=== PATIENT | male | born 1975 | race Caucasian/White ===

== ENCOUNTER 2016-07-08 18:29 | Observation (INO) | payer SELFPAY ==
[~2016-07-08] VITALS: Ht 167.6 cm; Wt 111.9 kg
[2016-07-08] MEDS ORDERED: SODIUM CHLORIDE 0.9% 1000ML 1,000 ML IV STA (19:01)
[2016-07-08] MEDS ORDERED: LABETALOL HCL IV 5 MG/ML 20ML IV STA (19:01)
--- NOTE | 2016-07-08 19:15 | EMERGENCY ROOM VISIT NOTE ---
History Report prepared by Christophe: Darcy Oneal Under the Supervision of: Dr. Griffin Prince M.D. First contact with patient: 18:52 Chief Complaint: SHORTNESS OF BREATH Stated Complaint: SOB,HIGH BP Nursing Triage Summary: pt reports sob started last wednesday and had cxr earlier today works from home . being treated for sinus infection now. wednesday had pain in chest and pain in jaw found out had bad tooth. pt reports elevated bp lately. has been under alot of stress. gets winded when walking and with exertion. pt has hx of aortic stenosis and had surgery when he was 8 years old History of Present Illness The patient is a 40 year old male who presents to the Emergency Room with complaints of persistent shortness of breath that began 4 days ago. He feels worse when he lays flat. He does not feel worse with exertion.The patient states that he is suspicious that his breathing difficulties are due to anxiety. He also complains of some fluttering in his chest and a cough. The patient was initially seen at [facility] 3 days ago and was put on antibiotics for a sinus infection. He has also been taking Benadryl. He had jaw pain at that time in addition to his shortness of breath and was diagnosed with a dental abscess. He saw a dentist yesterday to have the abscess drained and currently has no jaw or dental pain. Today, the patient had a chest x-ray ordered by the doctor he saw at Urgent Care which revealed an enlarged heart. He asked to have his blood pressure taken at that time which was 188/117. His systolic blood pressure is typically 140. He is not treated for hypertension. He notes that he decided to come to the ED today after he was looking up his symptoms and treatments online and became slightly anxious. The patient has a history of aortic stenosis. He had surgery to open his aortic valve when he was 8 years old but did not have a valve replacement and has not had any surgery since then. Denies chest pain, urinary symptoms, or other complaints. Source of History: patient Onset: 4 days ago Position: other (global) Timing: other (persistent) Modifying Factors (Worsening): other (laying flat ) Associated Symptoms: + cough, No chest pain, No urinary symptoms Note: Other symptoms: fluttering in chest Review of Systems See HPI for pertinent positives & negatives. A total of 10 systems reviewed and were otherwise negative. Past Medical & Surgical Medical Problems: (1) Aortic stenosis Family History No pertinent family history stated. Social History Smoking Status: Never Smoker Marital Status: Occupation Status: employed Current/Historical Medications Scheduled Amoxicillin & Pot Clavulanate (Augmentin 875-125 mg), 1 TAB PO BID Diphenhydramine Hcl (Benadryl Allergy), 25 MG PO DIRECTED Scheduled PRN Amoxicillin (Amoxil), 4 CAP PO DIRECTED PRN for DENTAL PROCEDURE Ibuprofen (Advil), 600 MG PO DIRECTED PRN for Headache Allergies Coded Allergies: No Known Allergies (Verified , 07/08/16) Physical Exam Vital Signs Date Time Temp Pulse Resp B/P Pulse Ox O2 Delivery O2 Flow Rate FiO2 07/08/16 20:09 67 20 162/133 98 Room Air 07/08/16 19:34 71 20 179/130 99 Room Air 07/08/16 19:20 99 Room Air 07/08/16 19:08 76 07/08/16 18:35 36.6 75 20 223/135 99 Room Air Physical Exam GENERAL: Patient is in no acute distress. HEENT: No acute trauma, normocephalic atraumatic, mucous membranes moist, no nasal congestion, no scleral icterus. NECK: No stridor, no adenopathy, no meningismus, trachea is midline. LUNGS: Clear to auscultation bilaterally, no wheeze, no rhonchi, breath sounds equal. HEART: 4/6 systolic murmur with a regular rate and rhythm. ABDOMEN: Soft, nontender, bowel sounds positive, no hernias, no peritonitis. EXTREMITIES: No cyanosis or edema, full range of motion of all the joints without pain or difficulty, no signs for acute trauma. NEUROLOGIC: Oriented x 3, no acute motor or sensory deficits, no focal weakness. SKIN: No rash, no jaundice, no diaphoresis. Medical Decision & Procedures ER Provider Diagnostic Interpretation: Chest x-ray from earlier today showed cardiomegaly, no CHF, no pneumonia. Laboratory Results 07/08/16 18:30 Red Blood Count 5.39, Mean Corpuscular Volume 86.3, Mean Corpuscular Hemoglobin 30.6, Mean Corpuscular Hemoglobin Concent 35.5, Mean Platelet Volume 10.0, Neutrophils (%) (Auto) 63.7, Lymphocytes (%) (Auto) 27.3, Monocytes (%) (Auto) 7.1, Eosinophils (%) (Auto) 1.5, Basophils (%) (Auto) 0.2, Neutrophils # (Auto) 5.20, Lymphocytes # (Auto) 2.23, Monocytes # (Auto) 0.58, Eosinophils # (Auto) 0.12, Basophils # (Auto) 0.02 07/08/16 18:30 Test 07/08/16 18:30 White Blood Count 8.17 K/uL (4.8-10.8) Red Blood Count 5.39 M/uL (4.7-6.1) Hemoglobin 16.5 g/dL (14.0-18.0) Hematocrit 46.5 % (42-52) Mean Corpuscular Volume 86.3 fL (80-100) Mean Corpuscular Hemoglobin 30.6 pg (25-34) Mean Corpuscular Hemoglobin Concent 35.5 g/dl (32-36) Platelet Count 291 K/uL (130-400) Mean Platelet Volume 10.0 fL (7.4-10.4) Neutrophils (%) (Auto) 63.7 % Lymphocytes (%) (Auto) 27.3 % Monocytes (%) (Auto) 7.1 % Eosinophils (%) (Auto) 1.5 % Basophils (%) (Auto) 0.2 % Neutrophils # (Auto) 5.20 K/uL (1.4-6.5) Lymphocytes # (Auto) 2.23 K/uL (1.2-3.4) Monocytes # (Auto) 0.58 K/uL (0.11-0.59) Eosinophils # (Auto) 0.12 K/uL (0-0.5) Basophils # (Auto) 0.02 K/uL (0-0.2) RDW Standard Deviation 41.2 fL (36.4-46.3) RDW Coefficient of Variation 13.0 % (11.5-14.5) Immature Granulocyte % (Auto) 0.2 % Immature Granulocyte # (Auto) 0.02 K/uL (0.00-0.02) Prothrombin Time 11.1 SECONDS (9.0-12.0) Prothromb Time International Ratio 1.0 (0.9-1.1) Activated Partial Thromboplast Time 26.4 SECONDS (21.0-31.0) Partial Thromboplastin Ratio 1.0 Anion Gap 9.0 mmol/L (3-11) Est Creatinine Clear Calc Drug Dose 94.3 ml/min Estimated GFR () 85.9 Estimated GFR (Non- 74.1 BUN/Creatinine Ratio 16.0 (10-20) Calcium Level 8.7 mg/dl (8.5-10.1) Magnesium Level 2.2 mg/dl (1.8-2.4) Total Bilirubin 0.5 mg/dl (0.2-1) Aspartate Amino Transf (AST/SGOT) 15 U/L (15-37) Alanine Aminotransferase (ALT/SGPT) 29 U/L (12-78) Alkaline Phosphatase 88 U/L (45-117) Troponin I < 0.015 ng/ml (0-0.045) Total Protein 8.3 gm/dl (6.4-8.2) Albumin 4.3 gm/dl (3.4-5.0) Globulin 4.0 gm/dl (2.5-4.0) Albumin/Globulin Ratio 1.1 (0.9-2) Thyroid Stimulating Hormone (TSH) 2.860 uIu/ml (0.300-4.500) Laboratory results reviewed by me. Medications Administered Medications (Trade) Dose Ordered Sig/Soto Route Start Time Stop Time Status Last Admin Dose Admin Sodium Chloride (Nss 1000ml) 1,000 ml @ 125 mls/hr Q8H STAT IV 07/08/16 19:01 07/09/16 03:00 07/08/16 19:33 125 MLS/HR Labetalol HCl (Normodyne IV) 20 mg NOW STAT IV 07/08/16 19:01 07/08/16 19:05 DC 07/08/16 19:31 20 MG Nitroglycerin (Nitroglycerin 2% Oint) 1 inch NOW STAT EXT 07/08/16 19:48 07/08/16 19:50 DC 07/08/16 19:48 1 INCH ECG Indication: SOB/dyspnea Rate (beats per minute): 78 Rhythm: normal sinus Findings: no acute ischemic change, no ectopy ED Course 1852: The patient was evaluated in room B8. A complete history and physical exam was performed. 1: Ordered Labetalol HCL 20 mg IV, NSS 1000 ml @ 125 mls/hr IV. 1950: Upon reexamination the patient is resting comfortably. I discussed results and treatment plan with the patient. He verbalizes agreement and understanding. The patient will be evaluated for further management. 2011: I discussed the case with Dr. Jose Ramon EPPERSON Hospitalist. The patient will be evaluated for further management. Medical Decision Differential includes but is not limited to hypertensive emergency/urgency, renal failure, electrolyte imbalance, dysrhythmia, anemia, TN, cardiac ischemia , aortic stenosis. There is no leukocytosis or concerning anemia. No significant electrolyte abnormality, kidney failure or hepatitis. EKG shows a normal sinus rhythm, no acute ischemia. Cardiac enzyme testing 1 is not consistent with acute cardiac injury. Chest x-ray done earlier today shows cardiomegaly, no CHF or pneumonia , no pneumothorax. The patient appears to be in a euthyroid state. The patient received labetalol IV, he then was given nitro paste. His blood pressure has come down to a more reasonable value. He is resting comfortably. The patient presents with increasing dyspnea, he is quite hypertensive, he has a loud cardiac murmur on exam and a history of aortic stenosis. Certainly, the aortic stenosis could be responsible for his dyspnea. Given the difficult to control blood pressure, given his presentation, admission/observation was felt warranted. I spoke to the patient and to case management. The on-call hospitalist was consulted. Consults Time Called: 1951 Consulting Physician: Dr. Jose Ramon EPPERSON Hospitalist Returned Call: 2011 I discussed the case with him. The patient will be evaluated for further management. Impression Primary Impression: Shortness of breath Additional Impressions: Hypertensive urgency Aortic stenosis Scribe Attestation The scribe's documentation has been prepared under my direction and personally reviewed by me in its entirety. I confirm that the note above accurately reflects all work, treatment, procedures, and medical decision making performed by me. Departure Information Dispostion Being Evaluated By Hospitalist Referrals No Doctor, Assigned (PCP) Patient Instructions My [facility] Problem Qualifiers
[2016-07-08 19:16] LABS: BASO % 0.2 %; BASO ABS # 0.02 K/uL (0-0.2); COMPLETE YES; EOS % 1.5 %; HEMATOCRIT 46.5 % (42-52); IG% 0.2 %; LYMPH % 27.3 %; LYMPH ABS # 2.23 K/uL (1.2-3.4); MEAN CELL VOLUME 86.3 fL (80-100); MEAN CORPUSCULAR HEMOGLOBIN 30.6 pg (25-34); MEAN CORPUSCULAR HGB CONC 35.5 g/dl (32-36); MONO % 7.1 %; NEUT % 63.7 %; PLATELET COUNT 291 K/uL (130-400); RED BLOOD COUNT 5.39 M/uL (4.7-6.1); WHITE BLOOD COUNT 8.17 K/uL (4.8-10.8)
[2016-07-08] MEDS ORDERED: IBUP-1050 PO (19:19)
[2016-07-08] MEDS ORDERED: DIPH25CA65 PO (19:19)
[2016-07-08] MEDS ORDERED: AMOX500C3 PO (19:19)
[2016-07-08] MEDS ORDERED: AMOX875T PO (19:19)
[2016-07-08 19:27] LABS: ALT/SGPT 29 U/L (12-78); AST/SGOT 15 U/L (15-37); BLOOD UREA NITROGEN 19 mg/dl (7-18); CALCIUM 8.7 mg/dl (8.5-10.1); CARBON DIOXIDE 26 mmol/L (21-32); CHLORIDE 106 mmol/L (98-107); GLUCOSE 92 mg/dl (70-99); MAGNESIUM 2.2 mg/dl (1.8-2.4); POTASSIUM 3.7 mmol/L (3.5-5.1); SODIUM 141 mmol/L (136-145)
[2016-07-08 19:38] LABS: ALB/GLOB RATIO 1.1 (0.9-2); ALKALINE PHOSPHATASE 88 U/L (45-117)
[2016-07-08 19:46] LABS: PROTHROMBIN TIME (PATIENT) 11.1 SECONDS (9.0-12.0)
[2016-07-08] MEDS ORDERED: NITROGLYCERIN OINT 2% 1GM PACKET EXT STA (19:48)
[2016-07-08] MEDS ORDERED: IV FLUIDS COMPLETED PRN (21:15)
[2016-07-08] MEDS ORDERED: METOPROLOL TARTRATE 25 MG TAB PO ONE (21:55)
[2016-07-08] MEDS ORDERED: LISINOPRIL 2.5 MG TAB PO ONE (21:58)
[2016-07-08] MEDS ORDERED: METOPROLOL TARTRATE 1 MG/ML VIAL IV PRN (22:00)
[2016-07-08] MEDS ORDERED: HydrALAZINE HCL 20 MG/ML VIAL IV. PRN (22:00)
[2016-07-08] MEDS ORDERED: METOPROLOL TARTRATE 1 MG/ML VIAL IV STA (22:07)
[2016-07-08 22:12] VITALS: BP 201/133; PULSE 74; TEMP 37; O2SAT 97; Ht 167.6 cm; Wt 111.9 kg
[2016-07-08] MEDS ORDERED: AMOXICILLIN/CLAVULANATE TAB 875 MG TAB PO ONE ×2 (22:39→23:00)
--- NOTE | 2016-07-08 22:44 | History and Physical ---
History & Physical Date & Time of Service: Jul 08, 2016 at 22:10 . Chief Complaint: shortness of breath . Primary Care Physician: No Doctor, Assigned . History of Present Illness Source: patient, clinic records, hospital records 40 YO male who does not have a PCP. History of aortic stenosis. S/P aortic valvulotomy at the age of 8 at [facility]. Last seen by a policy manager in 2002 when he was seen by Dr. Rai in the [facility]. Echo at that time showed normal left ventricular function, mild aortic stenosis. Stress echo negative for stress-induced ischemia. History of episodic hypertension, not treated with medications. Developed sinus congestion and drainage several weeks ago. Prescribed amoxicillin / clavulanic acid. Other medications included [id number] sinus medication with decongestant as well as ibuprofen. Later developed abscessed tooth. Was seen by dentist or oral surgeon yesterday. Usually has good exercise tolerance without significant limitations. Over the past week he has noted dyspnea, especially with exertion. Dyspnea also worse in supine position. Experiencing midsternal chest tightness - sometimes at rest, sometimes with exertion. Chest tightness nonradiating. No palpitations. No edema. No fever. Had a mild cough associated with his sinus infection, now resolved. BP upon arrival to ED was 223/135. Received IV labetalol and NTG ointment with improvement. . Past Medical/Surgical History Chronic Medical Problems: (1) Aortic stenosis Status: Chronic Surgical Problems: (1) Status post aortic valvotomy Permanent Comment: [facility] [place] for [place] stenosis Status: Chronic (2) Status post biopsy left femur Permanent Comment: benign path per patient Status: Chronic (3) Status post biopsy left femur Permanent Comment: benign path per patient Status: Chronic . Family History UNCLE Hypertension Social History Smoking Status: Never Smoker Alcohol Use: occasionally Marital Status: Occupational Status: employed Multi-Drug Resistant Organisms History of MDRO: No Allergies Coded Allergies: No Known Allergies (Verified , 07/08/16) Home Medications Scheduled Amoxicillin & Pot Clavulanate (Augmentin 875-125 mg), 1 TAB PO BID Diphenhydramine Hcl (Benadryl Allergy), 25 MG PO DIRECTED Scheduled PRN Amoxicillin (Amoxil), 4 CAP PO DIRECTED PRN for DENTAL PROCEDURE Ibuprofen (Advil), 600 MG PO DIRECTED PRN for Headache Review of Systems Constitutional: No chills, No fever, No sweats, No weight loss Eyes: + worsening of vision (occasional blurred vision), No diplopia ENT: + dental problems (tooth abscess left lower molar), + nasal symptoms, No hearing loss Respiratory: + cough (few weeks ago, resolved) Cardiovascular: + problem reported (as noted above in HPI) Abdomen: No GI bleeding, No diarrhea, No nausea, No pain, No vomiting Musculoskeletal: No joint pain Genitourinary - Male: No dysuria, No hematuria Endocrine: No excessive thirst, No excessive urination Hematologic / Lymphatic: + swollen lymph nodes (left neck), No abnormal bleeding/bruising Integumentary: No itch, No new/changing skin lesions, No rash Physical Exam Vital Signs Date Time Temp Pulse Resp B/P Pulse Ox O2 Delivery O2 Flow Rate FiO2 07/08/16 22:38 109 163/117 07/08/16 22:12 37.0 74 18 201/133 97 Room Air 07/08/16 21:21 72 18 195/137 99 Room Air 07/08/16 20:27 76 20 186/136 100 Room Air 07/08/16 20:09 67 20 162/133 98 Room Air 07/08/16 19:34 71 20 179/130 99 Room Air 07/08/16 19:20 99 Room Air 07/08/16 19:08 76 07/08/16 18:35 36.6 75 20 223/135 99 Room Air General Appearance: WD/WN, no apparent distress Head: normocephalic, atraumatic Eyes: normal inspection, PERRL, EOMI, sclerae normal ENT: normal ENT inspection, hearing grossly normal, pharynx normal Neck: supple, no adenopathy, thyroid normal, no JVD, trachea midline Respiratory/Chest: lungs clear, no respiratory distress Cardiovascular: regular rate, rhythm, no edema, no JVD, normal peripheral pulses, + systolic murmur (III/ systolic murmur at base), + gallop/S4 Abdomen/GI: normal bowel sounds, non tender, soft, no organomegaly, no pulsatile mass, + pertinent finding (no bruit) Extremities/Musculoskelatal: normal inspection, no calf tenderness, normal capillary refill, no pedal edema Neurologic/Psych: animal caretaker II-XII nml as tested (PERRL, EOMI, no facial palsy, no dysarthria), no motor/sensory deficits, alert, normal mood/affect, oriented x 3 Skin: normal color, warm/dry, no rash Lymphatic: no adenopathy Diagnostics Laboratory Results Results Past 24 Hours Test 07/08/16 18:30 Range/Units White Blood Count 8.17 4.8-10.8 K/uL Red Blood Count 5.39 4.7-6.1 M/uL Hemoglobin 16.5 14.0-18.0 g/dL Hematocrit 46.5 42-52 % Mean Corpuscular Volume 86.3 80-100 fL Mean Corpuscular Hemoglobin 30.6 25-34 pg Mean Corpuscular Hemoglobin Concent 35.5 32-36 g/dl Platelet Count 291 130-400 K/uL Mean Platelet Volume 10.0 7.4-10.4 fL Neutrophils (%) (Auto) 63.7 % Lymphocytes (%) (Auto) 27.3 % Monocytes (%) (Auto) 7.1 % Eosinophils (%) (Auto) 1.5 % Basophils (%) (Auto) 0.2 % Neutrophils # (Auto) 5.20 1.4-6.5 K/uL Lymphocytes # (Auto) 2.23 1.2-3.4 K/uL Monocytes # (Auto) 0.58 0.11-0.59 K/uL Eosinophils # (Auto) 0.12 0-0.5 K/uL Basophils # (Auto) 0.02 0-0.2 K/uL RDW Standard Deviation 41.2 36.4-46.3 fL RDW Coefficient of Variation 13.0 11.5-14.5 % Immature Granulocyte % (Auto) 0.2 % Immature Granulocyte # (Auto) 0.02 0.00-0.02 K/uL Prothrombin Time 11.1 9.0-12.0 SECONDS Prothromb Time International Ratio 1.0 0.9-1.1 Activated Partial Thromboplast Time 26.4 21.0-31.0 SECONDS Partial Thromboplastin Ratio 1.0 Sodium Level 141 136-145 mmol/L Potassium Level 3.7 3.5-5.1 mmol/L Chloride Level 106 98-107 mmol/L Carbon Dioxide Level 26 21-32 mmol/L Anion Gap 9.0 3-11 mmol/L Blood Urea Nitrogen 19 7-18 mg/dl Creatinine 1.20 0.60-1.40 mg/dl Est Creatinine Clear Calc Drug Dose 94.3 ml/min Estimated GFR () 85.9 Estimated GFR (Non- 74.1 BUN/Creatinine Ratio 16.0 10-20 Random Glucose 92 70-99 mg/dl Calcium Level 8.7 8.5-10.1 mg/dl Magnesium Level 2.2 1.8-2.4 mg/dl Total Bilirubin 0.5 0.2-1 mg/dl Aspartate Amino Transf (AST/SGOT) 15 15-37 U/L Alanine Aminotransferase (ALT/SGPT) 29 12-78 U/L Alkaline Phosphatase 88 45-117 U/L Troponin I < 0.015 0-0.045 ng/ml Total Protein 8.3 6.4-8.2 gm/dl Albumin 4.3 3.4-5.0 gm/dl Globulin 4.0 2.5-4.0 gm/dl Albumin/Globulin Ratio 1.1 0.9-2 Thyroid Stimulating Hormone (TSH) 2.860 0.300-4.500 uIu/ml Diagnostic Radiology Chest x-ray reviewed by undersigned and interpreted by Radiology: TWO VIEW CHEST FINDINGS: PA and lateral chest radiographs are compared to study dated 04/22/2009. The examination is degraded by large body habitus. The patient is status post midline sternotomy. The heart is enlarged and there is atherosclerotic calcification of the thoracic aorta. The pulmonary vasculature is noncongested. The lungs and pleural spaces are clear. There is no pneumothorax. The skeletal structures appear osteopenic. The bony thorax appears intact. Degenerative change and mild scoliosis are noted in the thoracic spine. IMPRESSION: Cardiomegaly with no active disease in the chest. Electronically signed by: Griffin Power M.D. 07/08/2016 3:53 PM . EKG EKG performed at 18:47 reviewed and demonstrated NSR at 80 / minute, LVH, poor R -wave progression, [address] depression lateral leads. . Impression Assessment and Plan HYPERTENSIVE URGENCY History of episodically elevated blood pressure, not treated medically. BP upon presentation to ED was 223/135. Recently taking decongestants and ibuprofen for sinus symptoms. Received IV labetalol and nitroglycerin ointment in ED. Start HCTZ 12.5 mg daily, metoprolol tartrate 25 mg BID, lisinopril 2.5 mg daily. IV metoprolol or IV hydralazine PRN. Check echo. Consider secondary causes of hypertension. Avoid NSAID's and decongestants. Follow and titrate Rx. DYSPNEA Not hypoxic. No infiltrates, CHF, or pleural effusions on chest film. SOB could be secondary to hypertensive urgency, ischemic heart disease, or worsening valvular heart disease. Check echo. Consult Cardiology. AORTIC STENOSIS History of aortic stenosis, s/p aortic vavlulotomy at age of 8. 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 Last echo performed in 2002 showed mild . Check f/u echo. VTE PROPHYLAXIS Low risk for VTE. SQ enoxaparin. Ambulate. RESUSCITATION STATUS Full code. DISPOSITION Observation status on Telemetry Unit. Expected discharge to home. Will need to establish with PCP and Cardiology for outpatient follow-up. . Advanced Directives Existing Living Will: No Existing Power of Parole Board Member: No VTE Prophylaxis VTE Risk Assessment Done? Y/N: Yes Risk Level: Low Given or contraindicated: Enoxaparin (Lovenox)SQ
[2016-07-08] MEDS: ACETAMINOPHEN 500 MG TAB PO PRN (23:37)
[2016-07-08 23:44] VITALS: BP 175/112; PULSE 56; TEMP 36.6; O2SAT 96
[2016-07-09] VITALS (7 sets, daily range): BP systolic 121–162; BP diastolic 85–111; PULSE 56–75; TEMP 36.7–36.8; O2SAT 97–100
[2016-07-09] MEDS ORDERED: AMOXICILLIN/CLAVULANATE TAB 875 MG TAB PO SCH ×2 (07:30)
[2016-07-09] MEDS ORDERED: HYDROCHLOROTHIAZIDE 25 MG TAB PO SCH (09:00)
[2016-07-09] MEDS ORDERED: ENOXAPARIN 40 MG/0.4 ML SYR SQ SCH (09:00)
[2016-07-09] MEDS ORDERED: METOPROLOL TARTRATE 25 MG TAB PO SCH (09:00)
[2016-07-09] MEDS ORDERED: LISINOPRIL 2.5 MG TAB PO SCH (09:00)
[2016-07-09] MEDS ORDERED: PERFLUTREN LIPID MICROSPHERE (DEFINITY) IV ONE (09:23)
--- NOTE | 2016-07-09 11:10 | ECHOCARDIOGRAM REPORT ---
*NOTICE TO RECEIVING [employer] This information is strictly Confidential and protected under [place] law. [place] law prohibits you from making any further disclosure of this information unless further disclosure is expressly permitted by the written consent of the person to whom it pertains or is authorized by law. A general authorization for the release of medical or other information is not sufficient for this purpose. Hospital accepts no responsibility if the information is made available to any other person, INCLUDING THE PATIENT. Interpretation Summary * Name: STEVEN ESPARZA Study Date: 07/09/2016 07:45 AM * Patient Location: .2\S\S241\S\1 HR: 76 * : 1975 (M/d/yyyy) Gender: Male Height: 65 in * Age: 40 yrs Ethnicity: [place] Weight: 247 lb * Ordering Physician: Amilcar Albright * Referring Physician: Self, Referred * Performed By: Katie Thao RDCS * * Reason For Study: HX CONGENITAL , S/P VALVULOTOMY, HTN * BSA: 2.2 m2 * History: VALVULAR HEART DISEASE, HX CONGENITAL , S/P VALVULOTOMY, HYPERTENSION * The study was technically limited. * -- Conclusions -- * There is mild concentric left ventricular hypertrophy. * There is also asymmetric hypertrophy of the mid and basal interventricular septum with maximum thickness of 2.2 cm. * The left ventricular wall motion is normal. * The LV Ejection Fraction = 55-60%. * The aortic valve is not well visualized. * Mild calcification of the aortic valve is present. * Mild to moderate valvular aortic stenosis based on Doppler evaluation. * Grade I diastolic dysfunction, (abnormal relaxation pattern). Procedure Details * A contrast injection of Definity was performed to improve assessment of LV function. * Contrast was injected into an intravenous site in the right arm. * One vial of Definity ultrasound contrast was diluted in normal saline to a total volume of 10 ml. A total of '2' ml of solution was administered during imaging. * Lot # [id number] of Definity utilized for procedure. * Expiration date AUG 04. * The attending nurse who injected the contrast agent was JELANI JAMES RN. * A complete two-dimensional transthoracic echocardiogram was performed (2D, M-mode, Doppler and color flow Doppler). Left Ventricle * The left ventricle is normal in size. * There is mild concentric left ventricular hypertrophy. * There is also asymetric hypertrophy of the mid and basal interventricular septum with maximum thickness of 2.2 cm. * Left ventricular systolic function is normal. * Ejection Fraction = 55-60%. * The left ventricular wall motion is normal. Right Ventricle * The right ventricle is normal size. * The right ventricular systolic function is normal as assessed by tricuspid annular plane systolic excursion (TAPSE) (normal >1.5 cm). Atria * The left atrial size is normal. * Right atrial size is normal. * There is no evidence of atrial septal defect, but resolution does not allow assessment for a patent foramen ovale. Mitral Valve * The mitral valve is normal. * There is no mitral valve stenosis. * Significant mitral regurgitation is absent. Tricuspid Valve * The tricuspid valve is normal. * There is no tricuspid stenosis. * Significant tricuspid regurgitation is absent. Aortic Valve * The aortic valve is not well visualized. * Mild calcification of the aortic valve is present. * Mild to moderate valvular aortic stenosis. * There is no significant aortic regurgitation. Pulmonic Valve * The pulmonary valve is not well seen, but the Doppler examination is normal without significant regurgitation or stenosis. Great Vessels * The aortic root and proximal ascending aorta are normal sized. Pericardium/Pleural * There is no pericardial effusion. Great Vessels * Normal inferior vena cava diameter and respiratory variation suggests normal central venous pressure. Left Ventricular Diastolic Function * Grade I diastolic dysfunction, (abnormal relaxation pattern). MMode 2D Measurements and Calculations IVSd 1.4 cm IVSs 1.8 cm LVIDd 4.6 cm LVIDs 3.2 cm LVPWd 1.4 cm LVPWs 2.0 cm IVS/LVPW 1.0 FS 30.3 % EDV(Teich) 95.4 ml ESV(Teich) 40.3 ml EF(Teich) 57.7 % EDV(cubed) 94.8 ml ESV(cubed) 32.1 ml EF(cubed) 66.1 % % IVS thick 30.7 % % LVPW thick 48.8 % LV mass(C)d 244.0 grams LV mass(C)dI 112.8 grams/m\S\2 LV mass(C)s 258.5 grams LV mass(C)sI 119.5 grams/m\S\2 SV(Teich) 55.0 ml SI(Teich) 25.4 ml/m\S\2 SV(cubed) 62.7 ml SI(cubed) 29.0 ml/m\S\2 LA dimension 3.7 cm LVOT diam 2.0 cm LVOT area 3.0 cm\S\2 LVAd ap4 28.4 cm\S\2 LVLd ap4 8.5 cm EDV(MOD-sp4) 72.9 ml EDV(sp4-el) 80.6 ml LVAs ap4 16.3 cm\S\2 LVLs ap4 6.7 cm ESV(MOD-sp4) 31.0 ml ESV(sp4-el) 33.9 ml EF(MOD-sp4) 57.5 % EF(sp4-el) 57.9 % LVAd ap2 31.3 cm\S\2 LVLd ap2 8.4 cm EDV(MOD-sp2) 95.9 ml EDV(sp2-el) 98.8 ml LVAs ap2 19.3 cm\S\2 LVLs ap2 6.6 cm ESV(MOD-sp2) 48.6 ml ESV(sp2-el) 48.3 ml EF(MOD-sp2) 49.4 % EF(sp2-el) 51.2 % LVLd %diff -0.53 % EDV(MOD-bp) 84.5 ml LVLs %diff -1.78 % ESV(MOD-bp) 39.0 ml EF(MOD-bp) 53.8 % SV(MOD-sp4) 41.9 ml SI(MOD-sp4) 19.4 ml/m\S\2 SV(MOD-sp2) 47.4 ml SI(MOD-sp2) 21.9 ml/m\S\2 SV(MOD-bp) 45.5 ml SI(MOD-bp) 21.0 ml/m\S\2 SV(sp4-el) 46.7 ml SI(sp4-el) 21.6 ml/m\S\2 SV(sp2-el) 50.6 ml SI(sp2-el) 23.4 ml/m\S\2 Doppler Measurements and Calculations MV E max jamie 90.7 cm/sec MV A max jamie 92.2 cm/sec MV E/A 0.98 MV dec time 0.25 sec Ao V2 max 283.8 cm/sec Ao max PG 33.0 mmHg Ao max PG (full) 30.3 mmHg Ao V2 mean 193.4 cm/sec Ao mean PG 17.8 mmHg Ao mean PG (full) 16.2 mmHg Ao V2 VTI 57.7 cm SHERRY(I,A) 1.0 cm\S\2 SHERRY(I,D) 1.0 cm\S\2 SHERRY(V,A) 0.89 cm\S\2 SHERRY(V,D) 0.89 cm\S\2 LV V1 max PG 2.8 mmHg LV V1 mean PG 1.6 mmHg LV V1 max 82.9 cm/sec LV V1 mean 59.1 cm/sec LV V1 VTI 19.3 cm SV(LVOT) 58.8 ml SI(LVOT) 27.2 ml/m\S\2
--- NOTE | 2016-07-09 12:09 | Cardiology Consultation ---
Cardiology Consultation Date of Consultation: Jul 09, 2016 History of Present Illness Percy Coronado is a 40-year-old male from [facility] seen in cardiology consultation per the request of Dr. Albright for the evaluation of shortness of breath, hypertension, and clinical history of congenital aortic valve stenosis. The patient apparently has a history of congenital aortic valve stenosis that had been diagnosed as a child. At age 8 he underwent midline sternotomy and surgical valvulotomy at [facility]. Hit followed with both pediatric and then it'll cardiology for many years however he had been lost to follow-up since 2002. 2002 he had an exercise stress echocardiogram at [facility] at which time mild aortic stenosis was noted. He notes having been well in the interim time. His recent history started about a week ago when he had symptoms of a head cold and progressive sinus congestion. He had been taking jyjw-fvn-lwleqxm sinus remedies including Sudafed and ultimately was taking phenylephrine nasal spray on an as-needed basis. On Wednesday he noted that he had a cough and worsened congestion. By 3 AM on Wednesday he had episodic jaw discomfort. The next day he was seen in urgent care Center and was diagnosed with a sinus infection and was placed on Augmentin. He remembers that his blood pressure is 160/80. Was recommended that he sees a dental professional due to concerns of a dental infection, also an outpatient chest x-ray had been recommended. He subsequent saw his dentist and was diagnosed with a dental infection and on Wednesday he had intervention in the dentist office for the tooth. He notes significant improvement in his jaw discomfort since the dental visit. Last evening on Wednesday07/08/16 he presented for a chest x-ray is recommended in follow-up by the urgent care Center and he arrived to radiology his blood pressure was noted to be significantly elevated. He went home and felt poorly and subsequently return to the emergency room due to concerns of shortness of breath, headache, and elevated blood pressure and on his initial blood pressure reading last evening at 1835 he was noted to have a blood pressure of 223/135 mmHg. He has not been on medication for hypertension. Although he does not go to the doctor's area often. Last evening he received 5 mg of IV metoprolol as well as a dose of IV labetalol rate topical nitroglycerin was placed. And he was admitted to the hospitalist service. Oral medications including metoprolol tartrate 25 mg twice a day, lisinopril 2.5 mg daily, and hydrochlorothiazide 12.5 mg daily added. His blood pressure is much improved today however still a little bit elevated with recent readings of 121/85, 148/108, and 147/97. The patient feels well, and is in no distress. Telemetry overnight revealed stable sinus rhythm. History PAST MEDICAL HISTORY: 1. Apparent congenital aortic valve stenosis 2. History of snoring which as been worse with his recent sinus infection no documented history of obstructive sleep apnea 3. At this point he is presumed underlying hypertension 4. Recent complicated sinusitis 5. Dental infection PAST SURGICAL HISTORY: 1. Midline sternotomy, aortic valvulotomy for congenital aortic stenosis performed age 8 [facility] 2. History of past bone biopsy, with favorable results FAMILY HISTORY: The patient does not know his father is unaware of his father's past medical history His mother is alive and is at the bedside with no heart history The patient does have a history of ischemic heart disease in his grandparents. SOCIAL HISTORY: The patient's a nonsmoker. He is and has 2 adult male children. 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 Review Of Systems See above for pertinent positives & negatives. A total of 10 systems reviewed and were otherwise negative. Allergies Coded Allergies: No Known Allergies (Verified , 07/08/16) Medications Reported Home Medications Medications Dose Route/Sig Max Daily Dose Days Date Category Amoxil (Amoxicillin) 500 Mg Cap 4 Cap PO DIRECTED PRN 07/08/16 Reported Augmentin 875-125 mg (Amoxicillin & Pot Clavulanate) 1 Tab Tab 1 Tab PO BID 07/08/16 Reported Benadryl Allergy (Diphenhydramine Hcl) 25 Mg Cap 25 Mg PO DIRECTED 07/08/16 Reported Advil (Ibuprofen) 200 Mg Tab 600 Mg PO DIRECTED PRN 07/08/16 Reported Physical Exam Vital Signs (Last 8hrs): Last 8 Hrs Date Time Temp Pulse Resp B/P Pulse Ox O2 Delivery O2 Flow Rate FiO2 07/09/16 10:00 75 18 147/97 07/09/16 08:00 Room Air 07/09/16 07:45 36.8 68 20 148/108 98 Room Air 157/111 07/09/16 05:26 36.8 61 20 121/85 97 Room Air General Appearance: Alert and Oriented x3. NAD. Head: Normocephalic Atraumatic. Eyes: PERRLA, EOMI, conjunctiva and sclera clear Neck: Supple. No carotid bruits noted. No JVD. No HJD. Respiratory: Breath sounds clear to auscultation bilaterally. No w/r/r. Cardiovascular: Reg rate and rhythm. 1/6 murmur Abdomen: Normal bowel sounds, soft nontender. no abdominal bruits. Extremities: No edema, no clubbing or cyanosis. distal pulses 2/4 bilaterally. Neuro: No focal deficits. Psychiatric: Normal affect. Data Last Resulted 07/08/16 18:30 Red Blood Count 5.39, Mean Corpuscular Volume 86.3, Mean Corpuscular Hemoglobin 30.6, Mean Corpuscular Hemoglobin Concent 35.5, Mean Platelet Volume 10.0, Neutrophils (%) (Auto) 63.7, Lymphocytes (%) (Auto) 27.3, Monocytes (%) (Auto) 7.1, Eosinophils (%) (Auto) 1.5, Basophils (%) (Auto) 0.2, Neutrophils # (Auto) 5.20, Lymphocytes # (Auto) 2.23, Monocytes # (Auto) 0.58, Eosinophils # (Auto) 0.12, Basophils # (Auto) 0.02 Last Resulted 07/08/16 18:30 Past 24 Hours Test 07/08/16 18:30 Range/Units Prothromb Time International Ratio 1.0 0.9-1.1 Prothrombin Time 11.1 9.0-12.0 SECONDS Troponin I < 0.015 0-0.045 ng/ml Imaging: EKG: EKG performed on presentation on 07/08/16 revealed normal sinus rhythm at 70 bpm normal EKG. Telemetry reviewed: SR. Summary of transthoracic echocardiogram performed today 07/09/16 and reviewed independently by the undersigned: * -- Conclusions -- * There is mild concentric left ventricular hypertrophy. * There is also asymetric hypertrophy of the mid and basal interventricular septum with maximum thickness of 2.2 cm. * The left ventricular wall motion is normal. * The LV Ejection Fraction = 55-60%. * The aortic valve is not well visualized. * Mild calcification of the aortic valve is present. * Mild to moderate valvular aortic stenosis based on Doppler evaluation. * Grade I diastolic dysfunction, (abnormal relaxation pattern). Assessment & Plan Impression: 40-year-old male 1. Shortness of breath and the setting of hypertensive urgency recent sinusitis , dental infection 2. History of congenital aortic valve disease, remote surgical valvulotomy HTN , stable echo cartographic findings of mild to moderate aortic valve stenosis 3. Left ventricular hypertrophy, with some degree of asymmetric septal hypertrophy, is difficult to determine if this is a remnant from his congenital aortic valve disease or if it is due to underlying hypertensive heart disease. Although the echocardiogram is somewhat technically limited, he certainly does not appear to have severe aortic stenosis that would cause symptoms and require surgical intervention. Recommendations: Continue Augmentin for sinusitis and recent dental infection Agree with new blood pressure medications including metoprolol tartrate 25 mg twice a day, lisinopril 2.5 g daily, Hydrocort Dyazide 25 mg daily. Patient has been counseled to avoid pseudoephedrine and phenylephrine nasal spray. If he needs an outpatient decongestant, guaifenesin would be advised. As long as the blood pressure remains reasonably controlled with systolic blood pressures in the 140-150 range after lunchtime, I think could be reasonable for him to be discharged with plans for outpatient cardiology follow-up in 2-4 weeks. Preoperative follow-up will be arranged with me at [facility].
--- NOTE | 2016-07-09 12:59 | Progress Note ---
Internal Med Progress Note Date of Service: Jul 09, 2016. Provider Documentation: SUBJECTIVE: Patient is doing better and denies any complaints No SOB, Chest pain, headaches, nausea, vomiting, localized weakness, fever, chills, cough BP down to 140s now OBJECTIVE: Vital Signs-as noted below Exam: General Appearance: WD/WN, no apparent distress Neck: supple, no adenopathy, thyroid normal, no JVD, trachea midline Respiratory/Chest: lungs clear, no respiratory distress Cardiovascular: regular rate, rhythm, no edema, no JVD, normal peripheral pulses, + systolic murmur Abdomen/GI: normal bowel sounds, non tender, soft, no organomegaly, no pulsatile mass, + pertinent finding (no bruit) Extremities/Musculoskelatal: normal inspection,no pedal edema Neurologic/Psych: Grossly no focal deficits, Anxious + Lab data as noted below. Diagnostic Radiology Chest x-ray reviewed by undersigned and interpreted by Radiology: TWO VIEW CHEST FINDINGS: PA and lateral chest radiographs are compared to study dated 04/22/2009. The examination is degraded by large body habitus. The patient is status post midline sternotomy. The heart is enlarged and there is atherosclerotic calcification of the thoracic aorta. The pulmonary vasculature is noncongested. The lungs and pleural spaces are clear. There is no pneumothorax. The skeletal structures appear osteopenic. The bony thorax appears intact. Degenerative change and mild scoliosis are noted in the thoracic spine. IMPRESSION: Cardiomegaly with no active disease in the chest. Electronically signed by: Griffin Power M.D. 07/08/2016 3:53 PM . EKG EKG performed at 18:47 reviewed and demonstrated NSR at 80 / minute, LVH, poor R -wave progression, [address] depression lateral leads. . ASSESSMENT & PLAN: Assessment and Plan HYPERTENSIVE URGENCY History of episodically elevated blood pressure, not treated medically. BP upon presentation to ED was 223/135. Recently taking decongestants and ibuprofen for sinus symptoms. -Received IV labetalol and nitroglycerin ointment in ED. -Started on HCTZ 12.5 mg daily, metoprolol tartrate 25 mg BID, lisinopril 2.5 mg daily which controlled BP well. -Work up- Echo- EF 55-60%, Asymmetric hypertrophy of mid/basal interventricular septum, Mild calcification of aortic valve, Mild-Moderate ; Gd II diastolic dysfunction , Mild LVH -Avoid NSAID's and decongestants. -Follow and titrate Rx. DYSPNEA- Resolved Not hypoxic. No infiltrates, CHF, or pleural effusions on chest film. -SOB could be secondary to hypertensive urgency, ischemic heart disease, or worsening valvular heart disease. -Echo as above AORTIC STENOSIS History of aortic stenosis, s/p aortic vavlulotomy at age of 8. 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 -Last echo performed in 2002 showed mild . Repeat Echo- as above- not severe and does not need surgical intervention per cardiology note VTE PROPHYLAXIS Low risk for VTE. SQ enoxaparin. Ambulate. RESUSCITATION STATUS Full code. DISPOSITION Observation status on Telemetry Unit. Expected discharge to home. Eager to be discharged home. Per patient, he will get appt with PCP set up within 1 week (prefers non [facility] PCP), Cardiology f/up in 2-4 weeks will be set up . Vital Signs: Date Time Temp Pulse Resp B/P Pulse Ox O2 Delivery O2 Flow Rate FiO2 07/09/16 10:00 75 18 147/97 07/09/16 08:00 Room Air 07/09/16 07:45 36.8 68 20 148/108 98 Room Air 157/111 07/09/16 05:26 36.8 61 20 121/85 97 Room Air 07/09/16 04:00 Room Air 07/09/16 03:26 36.8 56 22 153/101 99 Room Air 07/09/16 01:26 36.7 57 20 162/105 98 Room Air 07/09/16 00:01 Room Air 07/08/16 23:44 36.6 56 20 175/112 96 Room Air 07/08/16 22:38 109 163/117 07/08/16 22:12 37.0 74 18 201/133 97 Room Air 07/08/16 21:21 72 18 195/137 99 Room Air 07/08/16 20:27 76 20 186/136 100 Room Air 07/08/16 20:09 67 20 162/133 98 Room Air 07/08/16 19:34 71 20 179/130 99 Room Air 07/08/16 19:20 99 Room Air 07/08/16 19:08 76 07/08/16 18:35 36.6 75 20 223/135 99 Room Air Lab Results: Results Past 24 Hours Test 07/08/16 18:30 Range/Units White Blood Count 8.17 4.8-10.8 K/uL Red Blood Count 5.39 4.7-6.1 M/uL Hemoglobin 16.5 14.0-18.0 g/dL Hematocrit 46.5 42-52 % Mean Corpuscular Volume 86.3 80-100 fL Mean Corpuscular Hemoglobin 30.6 25-34 pg Mean Corpuscular Hemoglobin Concent 35.5 32-36 g/dl Platelet Count 291 130-400 K/uL Mean Platelet Volume 10.0 7.4-10.4 fL Neutrophils (%) (Auto) 63.7 % Lymphocytes (%) (Auto) 27.3 % Monocytes (%) (Auto) 7.1 % Eosinophils (%) (Auto) 1.5 % Basophils (%) (Auto) 0.2 % Neutrophils # (Auto) 5.20 1.4-6.5 K/uL Lymphocytes # (Auto) 2.23 1.2-3.4 K/uL Monocytes # (Auto) 0.58 0.11-0.59 K/uL Eosinophils # (Auto) 0.12 0-0.5 K/uL Basophils # (Auto) 0.02 0-0.2 K/uL RDW Standard Deviation 41.2 36.4-46.3 fL RDW Coefficient of Variation 13.0 11.5-14.5 % Immature Granulocyte % (Auto) 0.2 % Immature Granulocyte # (Auto) 0.02 0.00-0.02 K/uL Prothrombin Time 11.1 9.0-12.0 SECONDS Prothromb Time International Ratio 1.0 0.9-1.1 Activated Partial Thromboplast Time 26.4 21.0-31.0 SECONDS Partial Thromboplastin Ratio 1.0 Sodium Level 141 136-145 mmol/L Potassium Level 3.7 3.5-5.1 mmol/L Chloride Level 106 98-107 mmol/L Carbon Dioxide Level 26 21-32 mmol/L Anion Gap 9.0 3-11 mmol/L Blood Urea Nitrogen 19 7-18 mg/dl Creatinine 1.20 0.60-1.40 mg/dl Est Creatinine Clear Calc Drug Dose 94.3 ml/min Estimated GFR () 85.9 Estimated GFR (Non- 74.1 BUN/Creatinine Ratio 16.0 10-20 Random Glucose 92 70-99 mg/dl Calcium Level 8.7 8.5-10.1 mg/dl Magnesium Level 2.2 1.8-2.4 mg/dl Total Bilirubin 0.5 0.2-1 mg/dl Aspartate Amino Transf (AST/SGOT) 15 15-37 U/L Alanine Aminotransferase (ALT/SGPT) 29 12-78 U/L Alkaline Phosphatase 88 45-117 U/L Troponin I < 0.015 0-0.045 ng/ml Total Protein 8.3 6.4-8.2 gm/dl Albumin 4.3 3.4-5.0 gm/dl Globulin 4.0 2.5-4.0 gm/dl Albumin/Globulin Ratio 1.1 0.9-2 Thyroid Stimulating Hormone (TSH) 2.860 0.300-4.500 uIu/ml
[2016-07-09] MEDS: ACETAMINOPHEN 500 MG TAB PO PRN (13:06)
[2016-07-09] MEDS ORDERED: LSN25 PO (15:21)
[2016-07-09] MEDS ORDERED: HYDR25TA5 PO (15:21)
[2016-07-09] MEDS ORDERED: LPR25 PO (15:21)
--- NOTE | 2016-07-09 15:25 | Discharge Summary ---
Discharge Summary Date of Service Jul 09, 2016. Discharge Summary Admission Date: Jul 08, 2016 at 21:59 Discharge Date: Jul 09, 2016 Discharge Disposition: Home Principal Diagnosis: 1. Hypertensive urgency 2. Aortic stenosis S/P Aortic valvulotomy 3. Obesity Procedures: Tele monitoring CXR Echo EKG Consultations: Cardiology, Dr Solo Pending Studies/Follow-Up: Instructions / Follow-Up Instructions / Follow-Up MEDICATION CHANGES: New medications: 1. Metoprolol 12.5 mg PO BID 2. Lisinopril 2.5 mg daily 3. Hydrochlorthiazide 12.5 mg PO daily MONITOR BP twice a day, write down the readings and take it with you during next appointment with PCP Need to reduce weight FOLLOW UP 1. Establish care with PCP. Need to have an appt in 7 days. If unable to get it , contact us and we will help you get one 2. Follow up with Cardiology 07/24/16 at 7:[address] Solo at [facility] Medication Reconciliation New Medications: Hydrochlorothiazide (Hydrochlorothiazide) 25 Mg Tab 12.5 MG PO DAILY for 90 Days, #45 TAB Lisinopril (Lisinopril) 2.5 Mg Tab 2.5 MG PO QAM for 90 Days, #90 TAB Metoprolol Tartrate (Lopressor) 25 Mg Tab 25 MG PO BID for 90 Days, #180 TAB Continued Medications: Amoxicillin (Amoxil) 500 Mg Cap 4 CAP PO DIRECTED PRN for DENTAL PROCEDURE, #21 CAP Amoxicillin & Pot Clavulanate (Augmentin 875-125 mg) 1 Tab Tab 1 TAB PO BID, TAB Diphenhydramine Hcl (Benadryl Allergy) 25 Mg Cap 25 MG PO DIRECTED, CAP Discontinued Medications: Ibuprofen (Advil) 200 Mg Tab 600 MG PO DIRECTED PRN for Headache, TAB Admission Information HPI (per Admitting provider): 40 YO male who does not have a PCP. History of aortic stenosis. S/P aortic valvulotomy at the age of 8 at [facility]. 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 Rai in the [facility]. Echo at that time showed normal left ventricular function, mild aortic stenosis. Stress echo negative for stress-induced ischemia. History of episodic hypertension, not treated with medications. Developed sinus congestion and drainage several weeks ago. Prescribed amoxicillin / clavulanic acid. Other medications included [id number]-vdd-[id number] sinus medication with decongestant as well as ibuprofen. Later developed abscessed tooth. Was seen by dentist or oral surgeon yesterday. Usually has good exercise tolerance without significant limitations. Over the past week he has noted dyspnea, especially with exertion. Dyspnea also worse in supine position. Experiencing midsternal chest tightness - sometimes at rest, sometimes with exertion. Chest tightness nonradiating. No palpitations. No edema. No fever. Had a mild cough associated with his sinus infection, now resolved. BP upon arrival to ED was 223/135. Received IV labetalol and NTG ointment with improvement. . Physical Exam (per Admitting): General Appearance: WD/WN, no apparent distress Head: normocephalic, atraumatic Eyes: normal inspection, PERRL, EOMI, sclerae normal ENT: normal ENT inspection, hearing grossly normal, pharynx normal Neck: supple, no adenopathy, thyroid normal, no JVD, trachea midline Respiratory/Chest: lungs clear, no respiratory distress Cardiovascular: regular rate, rhythm, no edema, no JVD, normal peripheral pulses, + systolic murmur (III/ systolic murmur at base), + gallop/S4 Abdomen/GI: normal bowel sounds, non tender, soft, no organomegaly, no pulsatile mass, + pertinent finding (no bruit) Extremities/Musculoskelatal: normal inspection, no calf tenderness, normal capillary refill, no pedal edema Neurologic/Psych: first press operator II-XII nml as tested (PERRL, EOMI, no facial palsy, no dysarthria), no motor/sensory deficits, alert, normal mood/affect, oriented x 3 Skin: normal color, warm/dry, no rash Lymphatic: no adenopathy Hospital Course Assessment and Plan HYPERTENSIVE URGENCY History of episodically elevated blood pressure, not treated medically. BP upon presentation to ED was 223/135. Recently taking decongestants and ibuprofen for sinus symptoms. -Received IV labetalol and nitroglycerin ointment in ED. -Started on HCTZ 12.5 mg daily, metoprolol tartrate 25 mg BID, lisinopril 2.5 mg daily which controlled BP well. -Work up- Echo- EF 55-60%, Asymmetric hypertrophy of mid/basal interventricular septum, Mild calcification of aortic valve, Mild-Moderate ; Gd II diastolic dysfunction , Mild LVH -Avoid NSAID's and decongestants. -Follow and titrate Rx. DYSPNEA- Resolved Not hypoxic. No infiltrates, CHF, or pleural effusions on chest film. -SOB could be secondary to hypertensive urgency, ischemic heart disease, or worsening valvular heart disease. -Echo as above AORTIC STENOSIS History of aortic stenosis, s/p aortic vavlulotomy at age of 8. 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 -Last echo performed in 2002 showed mild . Repeat Echo- as above- not severe and does not need surgical intervention per cardiology note VTE PROPHYLAXIS Low risk for VTE. SQ enoxaparin. Ambulate. RESUSCITATION STATUS Full code. DISPOSITION Observation status on Telemetry Unit. Expected discharge to home. Eager to be discharged home. Per patient, he will get appt with PCP set up within 1 week (prefers non [facility] PCP), Cardiology f/up in 2-4 weeks will be set up . Total time spent on discharge = 32 minutes This includes examination of the patient, discharge planning, medication reconciliation, and communication with other providers. Discharge Instructions Discharge Goals Goal(s): Improve disease control, Prevent Disease Progression Activity Recommendations Activity Limitations: resume your previous activity . Instructions / Follow-Up Instructions / Follow-Up MEDICATION CHANGES: New medications: 1. Metoprolol 12.5 mg PO BID 2. Lisinopril 2.5 mg daily 3. Hydrochlorthiazide 12.5 mg PO daily MONITOR BP twice a day, write down the readings and take it with you during next appointment with PCP Need to reduce weight FOLLOW UP 1. Establish care with PCP. Need to have an appt in 7 days. If unable to get it , contact us and we will help you get one 2. Follow up with Cardiology 07/24/16 at 7:[address] Solo at [facility] Current Hospital Diet Patient's current hospital diet: AHA Diet (Heart Healthy) Discharge Diet Recommended Diet: AHA Diet (Heart Healthy), Low Sodium Diet (2gm Na), Low Fat Diet Pending Studies Studies pending at discharge: no Medical Emergencies . Who to Call and When: Medical Emergencies: If at any time you feel your situation is an emergency, please call 911 immediately. . Non-Emergent Contact Non-Emergency issues call your: Primary Care Provider, [employer] . . "Provider Documentation" section prepared by Breanna Song. VTE Core Measure Inpt VTE Proph given/why not?: Enoxaparin (Lovenox)SQ
[2016-08-09] MEDS ORDERED: ACET-1256 PO (18:33)
[2016-08-09] MEDS ORDERED: LPR25 PO (18:33)
[2016-11-15] MEDS ORDERED: ASPI81TA28 PO (12:22)
== END 2016-07-09 16:00 | disposition home or self-care (01) ==
LOC: ENRESERVDT → ENRESERVTM → C.EDB 18:29 → C.2T 21:59
PROVIDERS: ADMIT Hospitalist; ATTEND Internal Medicine
DX: I10 Essential (primary) hypertension (principal); I35.0 Nonrheumatic aortic (valve) stenosis; Z82.49 Family history of ischemic heart disease and other diseases of the circulatory system; I51.7 Cardiomegaly; J32.9 Chronic sinusitis, unspecified; R07.89 Other chest pain; R06.00 Dyspnea, unspecified; E66.9 Obesity, unspecified

== ENCOUNTER 2016-08-09 17:51 | Emergency (ER) | payer OTHER ==
[~2016-08-09] VITALS: Ht 167.6 cm; Wt 109.0 kg
[~2016-08-09 17:51] MED LIST: AMOX500C3 PO; AMOX875T PO; HYDR25TA5 PO; LPR25 PO; LSN25 PO
[2016-08-09 17:59] VITALS: TEMP 36.7; Ht 167.6 cm; Wt 109.0 kg
[2016-08-09] MEDS ORDERED: AMOX500C3 PO (18:33)
[2016-08-09] MEDS ORDERED: LSN5 PO (18:33)
[2016-08-09] MEDS ORDERED: BUSP15TA70 PO (18:33)
[2016-08-09] MEDS ORDERED: HYDR25TA4 PO (18:33)
--- NOTE | 2016-08-09 18:39 | EMERGENCY ROOM VISIT NOTE ---
History Report prepared by Christophe: Satinder Green Under the Supervision of: Dr. Luis Alberto Steel M.D. First contact with patient: 18:10 Chief Complaint: GI ASSESSMENT Stated Complaint: PRESSURE,MOVING PAIN/CRAMP IN CHEST AND UPPER ABD History of Present Illness The patient is a 41 year old male who presents to the Emergency Room with complaints of persistent chest pressure for the past week. The pressure was worse than usual yesterday. The patient also complains of cramping pain that moves around his back and abdomen. He has had several left leg cramping episodes but denies leg swelling. He has also been feeling short of breath, especially with exertion. He sometimes becomes dizzy when he moves too quickly. He denies fevers or chills. He is not on any blood thinners. The patient was admitted to the hospital one month ago for uncontrolled hypertension. At that time his blood pressure spiked at 280 / 160. He stayed in the hospital for one night. His blood pressure has been under control lately. The patient had surgery to correct congenital aortic stenosis. He follows up with Dr. Solo ( Cardiology), and has a stress test scheduled for next month. He has a family history of heart disease. He is not a smoker. Source of History: patient Onset: one week Position: chest Quality: pressure Timing: other (persistent) Associated Symptoms: + SOB, + abdominal pain, + back pain, No chills, No fevers Review of Systems See HPI for pertinent positives & negatives. A total of 10 systems reviewed and were otherwise negative. Past Medical & Surgical Medical Problems: (1) Aortic stenosis Surgical Problems: (1) Status post aortic valvotomy (2) Status post biopsy left femur (3) Status post biopsy left femur Old medical records were reviewed. Nurse's notes were reviewed and I agree with. Family History Hypertension UNCLE Social History Smoking Status: Never Smoker Marital Status: Occupation Status: employed Current/Historical Medications Scheduled Amoxicillin (Amoxil), 500 MG PO TID Hydrochlorothiazide (Hctz), 25 MG PO QAM Lisinopril (Lisinopril), 5 MG PO QAM Metoprolol Tartrate (Lopressor), 25 MG PO BID Scheduled PRN Acetaminophen (Tylenol), 1,000 MG PO DIRECTED PRN for Pain Amoxicillin (Amoxil), 4 CAP PO DIRECTED PRN for DENTAL PROCEDURE Buspirone Hcl (Buspar), 7.5 MG PO DAILY PRN for Anxiety/Agitation Diphenhydramine Hcl (Benadryl Allergy), 25 MG PO DIRECTED PRN for Sleep Allergies Coded Allergies: No Known Allergies (Verified , 08/09/16) Physical Exam Vital Signs Date Time Temp Pulse Resp B/P Pulse Ox O2 Delivery O2 Flow Rate FiO2 08/09/16 20:20 78 20 114/81 98 08/09/16 18:51 71 20 122/84 97 Room Air 08/09/16 18:49 67 08/09/16 17:59 36.7 71 20 129/91 97 Room Air Physical Exam General: Well developed well nourished in no acute distress, breathing comfortably on room air. Normal speech HEENT: Normal cephalic atraumatic. Pupils are equal round and reactive to light. Extraocular movements are intact. Oropharynx is pink with moist mucous membranes. No swelling of the mouth lips or tongue. Neck: Supple with a midline trachea. No meningeal signs or stiffness, no JVD or bruits. No Stridor. Chest: Clear to auscultation bilaterally. No wheezes or rhonchi. No increased work of breathing. Heart: regular rate and rhythm. 2/6 systolic murmur. Abdomen: Soft nontender, nondistended without rebound guarding or rigidity. Extremities: No cyanosis clubbing or edema. No calf tenderness or assymetry Spine/Back. Non tender to palpation. No CVA tenderness Skin: Good turgor without rashes. Neurologic exam: Cranial nerves two through 12 are intact. Motor and sensation are intact and symmetrical throughout. Medical Decision & Procedures ER Provider Diagnostic Interpretation: X-ray results as stated below per interpretation by me and the radiologist: CHEST ONE VIEW PORTABLE HISTORY: Atypical CHEST PAIN COMPARISON: Chest 07/08/2016. FINDINGS: The heart remains mildly enlarged. The lungs are clear. No pleural effusions. No pneumothorax. Poststernotomy changes. Old, healed left-sided clavicle fracture. IMPRESSION: No significant change compared to the prior study. No acute process. Electronically signed by: Donny Gómez M.D. 08/09/2016 7:00 PM Dictated Date/Time: 08/09/2016 7:00 PM Laboratory Results 08/09/16 18:45 Red Blood Count 5.29, Mean Corpuscular Volume 87.3, Mean Corpuscular Hemoglobin 29.5, Mean Corpuscular Hemoglobin Concent 33.8, Mean Platelet Volume 9.5, Neutrophils (%) (Auto) 60.8, Lymphocytes (%) (Auto) 31.1, Monocytes (%) (Auto) 6.1, Eosinophils (%) (Auto) 1.6, Basophils (%) (Auto) 0.2, Neutrophils # (Auto) 5.55, Lymphocytes # (Auto) 2.85, Monocytes # (Auto) 0.56, Eosinophils # (Auto) 0.15, Basophils # (Auto) 0.02 08/09/16 18:45 Test 08/09/16 18:45 08/09/16 18:48 White Blood Count 9.15 K/uL (4.8-10.8) Red Blood Count 5.29 M/uL (4.7-6.1) Hemoglobin 15.6 g/dL (14.0-18.0) Hematocrit 46.2 % (42-52) Mean Corpuscular Volume 87.3 fL (80-100) Mean Corpuscular Hemoglobin 29.5 pg (25-34) Mean Corpuscular Hemoglobin Concent 33.8 g/dl (32-36) Platelet Count 276 K/uL (130-400) Mean Platelet Volume 9.5 fL (7.4-10.4) Neutrophils (%) (Auto) 60.8 % Lymphocytes (%) (Auto) 31.1 % Monocytes (%) (Auto) 6.1 % Eosinophils (%) (Auto) 1.6 % Basophils (%) (Auto) 0.2 % Neutrophils # (Auto) 5.55 K/uL (1.4-6.5) Lymphocytes # (Auto) 2.85 K/uL (1.2-3.4) Monocytes # (Auto) 0.56 K/uL (0.11-0.59) Eosinophils # (Auto) 0.15 K/uL (0-0.5) Basophils # (Auto) 0.02 K/uL (0-0.2) RDW Standard Deviation 41.5 fL (36.4-46.3) RDW Coefficient of Variation 12.9 % (11.5-14.5) Immature Granulocyte % (Auto) 0.2 % Immature Granulocyte # (Auto) 0.02 K/uL (0.00-0.02) Anion Gap 6.0 mmol/L (3-11) Est Creatinine Clear Calc Drug Dose 84.8 ml/min Estimated GFR () 77.5 Estimated GFR (Non- 66.8 BUN/Creatinine Ratio 16.9 (10-20) Calcium Level 8.8 mg/dl (8.5-10.1) Total Bilirubin 0.3 mg/dl (0.2-1) Direct Bilirubin < 0.1 mg/dl (0-0.2) Aspartate Amino Transf (AST/SGOT) 13 U/L (15-37) Alanine Aminotransferase (ALT/SGPT) 34 U/L (12-78) Alkaline Phosphatase 86 U/L (45-117) Total Creatine Kinase 158 U/L (39-308) Creatine Kinase MB 1.5 ng/ml (0.5-3.6) Creatine Kinase MB Ratio 0.9 (0-3.0) Total Protein 7.8 gm/dl (6.4-8.2) Albumin 4.1 gm/dl (3.4-5.0) Lipase 130 U/L (73-393) Bedside Troponin I 0.000 ng/ml (0-0.045) Laboratory studies as stated above per my review. ECG Indication: chest pain Rate (beats per minute): 67 Rhythm: normal sinus Findings: no acute ischemic change, no ectopy, other (LVH) Comparison ECG Date: 08 July 2016 Change: no significant change ED Course 1814: Past medical records reviewed. The patient was evaluated in room B4b, and a complete history and physical examination were performed. 1950: The patient asked when he will be able to go home. 1956: Reassessed the patient. Discussed the findings with him. He verbalized understanding and agreement of the treatment plan. The patient will be prepared for discharge. Medical Decision Differential diagnosis includes hypertensive emergency, acute coronary syndrome , arrhythmia, CHF, PE, aortic dissection, electrolyte or metabolic abnormality, anxiety. This patient comes in as described above. He was placed in room B4. History of hypertension that was significant elevated and recently treated he is scheduled to have outpatient stress test. He has been having some vague chest and back pain., He said he normally wouldn't worry about its but with his recent history he was more concerned. He looks well on exam. IV access established EKG was obtained which shows LVH otherwise no ischemic changes. Chest x-ray multiple blood tests was obtained including cardiac enzymes. He was reassessed frequently. He has no elevation of his cardiac enzymes his chest x-ray is unremarkable. His symptoms do not suggest aortic dissection. He is normotensive here as well. He has nothing to suggest PE or congestive heart failure. He has no acute electrolyte or metabolic abnormality. He tells me is feeling anxious and asking if this could be related that. It certainly could be in I do think he needs to have a stress test to further rule out cardiac disease. I did offer him admission and he declines I think that it is reasonable at this point to take an aspirin a day and call his consumer credit counselor tomorrow and try to get a stress test moved up sooner return if: Recurrence of symptoms, shortness of breath, any new problems or concerns. The patient and his were happy with plan and he was discharged to home. Impression Primary Impression: Precordial chest pain Additional Impressions: Back pain Anxiety Scribe Attestation The scribe's documentation has been prepared under my direction and personally reviewed by me in its entirety. I confirm that the note above accurately reflects all work, treatment, procedures, and medical decision making performed by me. Departure Information Dispostion Home / Self-Care Referrals Arturo Klein M.D. (PCP) Forms HOME CARE DOCUMENTATION FORM, IMPORTANT VISIT INFORMATION Patient Instructions My [facility] [employer] Additional Instructions Rest Take an Aspirin 81 mg once a day Return if: worsening of symptoms, fever, increasing any new problems or concerns Follow-up with your doctor this week for recheck Problem Qualifiers
[2016-08-09 18:56] LABS: BASO % 0.2 %; BASO ABS # 0.02 K/uL (0-0.2); COMPLETE YES; EOS % 1.6 %; HEMATOCRIT 46.2 % (42-52); IG% 0.2 %; LYMPH % 31.1 %; LYMPH ABS # 2.85 K/uL (1.2-3.4); MEAN CELL VOLUME 87.3 fL (80-100); MEAN CORPUSCULAR HEMOGLOBIN 29.5 pg (25-34); MEAN CORPUSCULAR HGB CONC 33.8 g/dl (32-36); MEAN PLATELET VOLUME 9.5 fL (7.4-10.4); MONO % 6.1 %; NEUT % 60.8 %; PLATELET COUNT 276 K/uL (130-400); RED BLOOD COUNT 5.29 M/uL (4.7-6.1); WHITE BLOOD COUNT 9.15 K/uL (4.8-10.8)
--- NOTE | 2016-08-09 19:03 | DIAGNOSTIC IMAGING REPORT ---
CHEST ONE VIEW PORTABLE HISTORY: Atypical CHEST PAIN COMPARISON: Chest 07/08/2016. FINDINGS: The heart remains mildly enlarged. The lungs are clear. No pleural effusions. No pneumothorax. Poststernotomy changes. Old, healed left-sided clavicle fracture. IMPRESSION: No significant change compared to the prior study. No acute process. Electronically signed by: Donny Gómez M.D. 08/09/2016 7:00 PM Dictated Date/Time: 08/09/2016 7:00 PM
[2016-08-09 19:12] LABS: ALT/SGPT 34 U/L (12-78); AST/SGOT 13 U/L (15-37); BLOOD UREA NITROGEN 22 mg/dl (7-18); BUN/CREATININE RATIO 16.9 (10-20); CALCIUM 8.8 mg/dl (8.5-10.1); CARBON DIOXIDE 31 mmol/L (21-32); CHLORIDE 102 mmol/L (98-107); GLUCOSE 114 mg/dl (70-99); POTASSIUM 3.5 mmol/L (3.5-5.1); SODIUM 139 mmol/L (136-145)
[2016-08-09 19:17] LABS: ALKALINE PHOSPHATASE 86 U/L (45-117); CKMB/CK RATIO 0.9 (0-3.0)
[2016-08-09 20:20] VITALS: BP 114/81; PULSE 78; O2SAT 98
[2017-01-22] MEDS ORDERED: ASPI81TA28 PO (12:22)
== END 2016-08-09 20:21 | disposition home or self-care (01) ==
LOC: C.EDB 17:53
DX: R07.2 Precordial pain (principal); F41.9 Anxiety disorder, unspecified; M54.9 Dorsalgia, unspecified; I10 Essential (primary) hypertension; Z98.890 Other specified postprocedural states; Z82.49 Family history of ischemic heart disease and other diseases of the circulatory system; Z79.899 Other long term (current) drug therapy

== ENCOUNTER 2016-11-12 18:51 | Emergency (ER) | payer OTHER ==
[~2016-11-12] VITALS: Ht 162.6 cm; Wt 109.6 kg
[~2016-11-12 18:51] MED LIST changes: -AMOX875T PO; +BUSP15TA70 PO; +HYDR25TA4 PO; -HYDR25TA5 PO; -LPR25 PO; -LSN25 PO; +LSN5 PO
[2016-11-12 18:58] VITALS: TEMP 36.7; Ht 162.6 cm; Wt 109.6 kg
[2016-11-12] MEDS ORDERED: LABETALOL HCL IV 5 MG/ML 20ML IV STA (19:46)
[2016-11-12 19:58] LABS: BASO % 0.2 %; BASO ABS # 0.02 K/uL (0-0.2); COMPLETE YES; EOS % 0.8 %; HEMATOCRIT 45.2 % (42-52); IG% 0.2 %; LYMPH % 27.3 %; LYMPH ABS # 2.62 K/uL (1.2-3.4); MEAN CELL VOLUME 88.8 fL (80-100); MEAN CORPUSCULAR HEMOGLOBIN 30.5 pg (25-34); MEAN CORPUSCULAR HGB CONC 34.3 g/dl (32-36); NEUT % 65.5 %; PLATELET COUNT 282 K/uL (130-400); RED BLOOD COUNT 5.09 M/uL (4.7-6.1); WHITE BLOOD COUNT 9.61 K/uL (4.8-10.8)
--- NOTE | 2016-11-12 20:15 | EMERGENCY ROOM VISIT NOTE ---
History Report prepared by Christophe: Ney Simon Under the Supervision of: Dr. Griffin Prince M.D. First contact with patient: 19:03 Chief Complaint: HYPERTENSION Stated Complaint: HIGH BP, NAUSEA History of Present Illness The patient is a 41 year old male who presents to the Emergency Room with complaints of constant hypertension beginning this morning. The patient states that he is currently taking Lisinopril and Metoprolol for his hypertension. He reports that he used to take hydrochlorothiazide but stopped 1.5 months ago because of renal failure secondary to dehydration. The patient notes that he took his blood pressure at home and it was 157/111 and 160/110. He states that he called the cardiology clinic and was told to take an extra dose of 2.5 mg of Lisinopril. The patient reports that he did this, and it did not help. He notes that he had similar symptoms yesterday, and this treatment worked. He notes that about 2 hours ago he developed right sided chest pain after being outside for 30 minutes. He reports that it lasted about a minute and has not reoccurred since. He notes that as he was experiencing the chest pain, he got nauseous and dizzy. The patient states that he did not take medication for his pain. He notes that he currently has a very slight headache and minor pain to his left, upper chest. The patient states that he has been under gross amounts of stress at work and believes this is the cause for this high blood pressure--he has not missed a dose of his hypertension medication. He reports that he was diagnosed with SVT 1.5 months ago and has a history of aortic stenosis. He denies shortness of breath and syncope. The patient states that he was admitted 4 months ago for hypertension. He reports that he also had a heart catheterization recently that was clear. The patient denies a history of AZ. Source of History: patient Onset: this morning Position: other (heart) Quality: other (hypertension) Timing: constant Associated Symptoms: + chest pain (resolved), + nausea, No SOB Note: Associated symptoms: dizziness Review of Systems See HPI for pertinent positives & negatives. A total of 10 systems reviewed and were otherwise negative. Past Medical & Surgical Medical Problems: (1) Aortic stenosis Surgical Problems: (1) Status post aortic valvotomy (2) Status post biopsy left femur (3) Status post biopsy left femur Family History Hypertension UNCLE Social History Smoking Status: Never Smoker Marital Status: Occupation Status: employed Current/Historical Medications Scheduled Lisinopril (Lisinopril), 10 MG PO QAM Metoprolol Tartrate (Lopressor), 25 MG PO BID Scheduled PRN Acetaminophen (Tylenol), 1,000 MG PO DIRECTED PRN for Pain Amoxicillin (Amoxil), 4 CAP PO DIRECTED PRN for DENTAL PROCEDURE Buspirone Hcl (Buspar), 7.5 MG PO DAILY PRN for Anxiety/Agitation Diphenhydramine Hcl (Benadryl Allergy), 25 MG PO DIRECTED PRN for Sleep Allergies Coded Allergies: No Known Allergies (Verified , 11/12/16) Physical Exam Vital Signs Date Time Temp Pulse Resp B/P (MAP) Pulse Ox O2 Delivery O2 Flow Rate FiO2 11/12/16 20:07 66 16 143/108 97 Room Air 11/12/16 19:25 66 11/12/16 18:58 36.7 99 20 184/133 97 Room Air Physical Exam GENERAL: Patient is in no acute distress. HEENT: No acute trauma, normocephalic atraumatic, mucous membranes moist, no nasal congestion, no scleral icterus. NECK: No stridor, no adenopathy, no meningismus, trachea is midline. LUNGS: Clear to auscultation bilaterally, no wheeze, no rhonchi, breath sounds equal. HEART: 3/6 systolic murmur, regular rate and rhythm. ABDOMEN: Soft, nontender, bowel sounds positive, no hernias, no peritonitis. EXTREMITIES: No cyanosis or edema, full range of motion of all the joints without pain or difficulty, no signs for acute trauma. NEUROLOGIC: Oriented x 3, no acute motor or sensory deficits, no focal weakness. SKIN: No rash, no jaundice, no diaphoresis. Medical Decision & Procedures Laboratory Results 11/12/16 19:40 Red Blood Count 5.09, Mean Corpuscular Volume 88.8, Mean Corpuscular Hemoglobin 30.5, Mean Corpuscular Hemoglobin Concent 34.3, Mean Platelet Volume 10.0, Neutrophils (%) (Auto) 65.5, Lymphocytes (%) (Auto) 27.3, Monocytes (%) (Auto) 6.0, Eosinophils (%) (Auto) 0.8, Basophils (%) (Auto) 0.2, Neutrophils # (Auto) 6.29, Lymphocytes # (Auto) 2.62, Monocytes # (Auto) 0.58, Eosinophils # (Auto) 0.08, Basophils # (Auto) 0.02 11/12/16 19:40 Test 11/12/16 19:40 11/12/16 19:45 White Blood Count 9.61 K/uL (4.8-10.8) Red Blood Count 5.09 M/uL (4.7-6.1) Hemoglobin 15.5 g/dL (14.0-18.0) Hematocrit 45.2 % (42-52) Mean Corpuscular Volume 88.8 fL (80-100) Mean Corpuscular Hemoglobin 30.5 pg (25-34) Mean Corpuscular Hemoglobin Concent 34.3 g/dl (32-36) Platelet Count 282 K/uL (130-400) Mean Platelet Volume 10.0 fL (7.4-10.4) Neutrophils (%) (Auto) 65.5 % Lymphocytes (%) (Auto) 27.3 % Monocytes (%) (Auto) 6.0 % Eosinophils (%) (Auto) 0.8 % Basophils (%) (Auto) 0.2 % Neutrophils # (Auto) 6.29 K/uL (1.4-6.5) Lymphocytes # (Auto) 2.62 K/uL (1.2-3.4) Monocytes # (Auto) 0.58 K/uL (0.11-0.59) Eosinophils # (Auto) 0.08 K/uL (0-0.5) Basophils # (Auto) 0.02 K/uL (0-0.2) RDW Standard Deviation 42.2 fL (36.4-46.3) RDW Coefficient of Variation 13.0 % (11.5-14.5) Immature Granulocyte % (Auto) 0.2 % Immature Granulocyte # (Auto) 0.02 K/uL (0.00-0.02) Anion Gap 9.0 mmol/L (3-11) Est Creatinine Clear Calc Drug Dose 89.1 ml/min Estimated GFR () 85.3 Estimated GFR (Non- 73.6 BUN/Creatinine Ratio 11.7 (10-20) Calcium Level 9.2 mg/dl (8.5-10.1) Bedside Troponin I < 0.030 ng/ml (0-0.045) Laboratory results reviewed by me. Medications Administered Medications (Trade) Dose Ordered Sig/Soto Route Start Time Stop Time Status Last Admin Dose Admin Labetalol HCl (Normodyne IV) 20 mg NOW STAT IV 11/12/16 19:46 11/12/16 19:48 DC 11/12/16 20:03 20 MG ECG Indication: chest pain, other (hypertension) Rate (beats per minute): 62 Rhythm: normal sinus (With LVH) Findings: no acute ischemic change, no ectopy ED Course 1904: The patient was evaluated in room C06 by the resident under my supervision. A complete history and physical exam was performed. 1945: Ordered Normodyne IV 20 mg IV 1949: I reevaluated the patient and performed a physical examination. Medical Decision Differential diagnosis includes: anxiety, essential hypertension, missed medication doses, AZ, cardiac ischemia, renal failure There is no leukocytosis or concerning anemia. No significant electrolyte abnormality or kidney failure. Initial troponin has returned normal. Second troponin is still pending. EKG showed a normal sinus rhythm with LVH, no acute ischemia. On exam, the patient did have a systolic murmur but this is typical with his history of aortic stenosis. His lungs were clear, there were no focal neurologic deficits. He was in no acute distress. The patient received IV labetalol for the elevated blood pressure. His pressure has reduced to a more reasonable value. The patient is improved, I do think he can go home as long as his second troponin value is negative and his blood pressure remains at a reasonable value. The patient has had a negative cardiac catheterization recently, his risk for AZ is quite small. The patient's hypertension can be followed as an outpatient. He may require some adjustment of his medications. He may need better control in the evening. He will talk with his doctor in the outpatient setting. Impression Primary Impression: HTN (hypertension) Scribe Attestation The scribe's documentation has been prepared under my direction and personally reviewed by me in its entirety. I confirm that the note above accurately reflects all work, treatment, procedures, and medical decision making performed by me. Departure Information Dispostion Still a Patient Referrals Arturo Klein M.D. (PCP) Patient Instructions My [facility]
[2016-11-12 20:18] LABS: BUN/CREATININE RATIO 11.7 (10-20); CALCIUM 9.2 mg/dl (8.5-10.1); CREATININE 1.2 mg/dl (0.60-1.40); POTASSIUM 3.7 mmol/L (3.5-5.1)
--- NOTE | 2016-11-12 21:53 | EMERGENCY ROOM VISIT NOTE ---
History First contact with patient: 19:04 Chief Complaint: HYPERTENSION Stated Complaint: HIGH BP, NAUSEA History of Present Illness The patient is a 41 year old male with hx of Aortic Stenosis, HTN currently on Lisinopril 10 mg qd and Metoprolol 25 mg BID who presents to the Emergency Room with complaints of elevated BP. Patient reports he was his pressure has typically at home ranged between 120-140's systolic on 70's to 90's diastolic. He reports today a BP of 157/107 followed by 160/110. He contacted his cardiology clinic and was told to take an extra 2.5 mg of Lisinopril and to come to ED in no improvement. Patient eventually decided to come in to Emergency after episode of chest discomfort lasting a few second 1-2/10 right sided. He denies presyncope, syncope, SOB, PND, orthopnea Review of Systems Pt denies headache, change in vision, fevers, shortness of breath, nausea, vomiting, diarrhea, pain with urination, and melena. Past Medical/Surgical History Medical Problems: (1) Aortic stenosis Surgical Problems: (1) Status post aortic valvotomy (2) Status post biopsy left femur (3) Status post biopsy left femur Family History Hypertension UNCLE Social History Smoking Status: Never Smoker Marital Status: Occupation Status: employed Current/Historical Medications Scheduled Aspirin (Aspirin Ec), 81 MG PO DAILY Lisinopril (Lisinopril), 10 MG PO QAM Metoprolol Tartrate (Lopressor), 25 MG PO BID Scheduled PRN Acetaminophen (Tylenol), 1,000 MG PO DIRECTED PRN for Pain Buspirone Hcl (Buspar), 7.5 MG PO BID PRN for Anxiety/Agitation Diphenhydramine Hcl (Benadryl Allergy), 25 MG PO DIRECTED PRN for Sleep Physical Exam Vital Signs Date Time Temp Pulse Resp B/P (MAP) Pulse Ox O2 Delivery O2 Flow Rate FiO2 11/12/16 22:22 57 20 141/97 97 11/12/16 21:02 62 145/97 98 Room Air 11/12/16 21:01 11/12/16 20:07 66 16 143/108 97 Room Air 11/12/16 19:25 66 11/12/16 18:58 36.7 99 20 184/133 97 Room Air Physical Exam GENERAL: alert, well appearing, well nourished, no distress, non-toxic EYE EXAM: normal conjunctiva, PERRL and EOM's grossly intact OROPHARYNX: no exudate, no erythema, lips, buccal mucosa, and tongue normal and mucous membranes are moist NECK: supple, no nuchal rigidity, no adenopathy, non-tender LUNGS: Clear to auscultation. Normal chest wall mechanics HEART: Systolic Ejection murmur, S1 normal and S2 normal ABDOMEN: abdomen soft, non-tender, normo-active bowel sounds, no masses, no rebound or guarding. BACK: Back is symmetrical on inspection and there is no deformity, no midline tenderness, no CVA tenderness. SKIN: no rashes and no bruising UPPER EXTREMITIES: upper extremities are grossly normal. LOWER EXTREMITIES: No pitting edema. NEURO EXAM: Normal sensorium, cranial nerves II-XII grossly intact, normal speech, no gross weakness of arms, no gross weakness of legs. Medical Decision & Procedures Laboratory Results 11/12/16 19:40 Red Blood Count 5.09, Mean Corpuscular Volume 88.8, Mean Corpuscular Hemoglobin 30.5, Mean Corpuscular Hemoglobin Concent 34.3, Mean Platelet Volume 10.0, Neutrophils (%) (Auto) 65.5, Lymphocytes (%) (Auto) 27.3, Monocytes (%) (Auto) 6.0, Eosinophils (%) (Auto) 0.8, Basophils (%) (Auto) 0.2, Neutrophils # (Auto) 6.29, Lymphocytes # (Auto) 2.62, Monocytes # (Auto) 0.58, Eosinophils # (Auto) 0.08, Basophils # (Auto) 0.02 11/12/16 19:40 Test 11/12/16 19:40 11/12/16 21:32 White Blood Count 9.61 K/uL (4.8-10.8) Red Blood Count 5.09 M/uL (4.7-6.1) Hemoglobin 15.5 g/dL (14.0-18.0) Hematocrit 45.2 % (42-52) Mean Corpuscular Volume 88.8 fL (80-100) Mean Corpuscular Hemoglobin 30.5 pg (25-34) Mean Corpuscular Hemoglobin Concent 34.3 g/dl (32-36) Platelet Count 282 K/uL (130-400) Mean Platelet Volume 10.0 fL (7.4-10.4) Neutrophils (%) (Auto) 65.5 % Lymphocytes (%) (Auto) 27.3 % Monocytes (%) (Auto) 6.0 % Eosinophils (%) (Auto) 0.8 % Basophils (%) (Auto) 0.2 % Neutrophils # (Auto) 6.29 K/uL (1.4-6.5) Lymphocytes # (Auto) 2.62 K/uL (1.2-3.4) Monocytes # (Auto) 0.58 K/uL (0.11-0.59) Eosinophils # (Auto) 0.08 K/uL (0-0.5) Basophils # (Auto) 0.02 K/uL (0-0.2) RDW Standard Deviation 42.2 fL (36.4-46.3) RDW Coefficient of Variation 13.0 % (11.5-14.5) Immature Granulocyte % (Auto) 0.2 % Immature Granulocyte # (Auto) 0.02 K/uL (0.00-0.02) Anion Gap 9.0 mmol/L (3-11) Est Creatinine Clear Calc Drug Dose 89.1 ml/min Estimated GFR () 85.3 Estimated GFR (Non- 73.6 BUN/Creatinine Ratio 11.7 (10-20) Calcium Level 9.2 mg/dl (8.5-10.1) Bedside Troponin I < 0.030 ng/ml (0-0.045) Medications Administered Medications (Trade) Dose Ordered Sig/Soto Route Start Time Stop Time Status Last Admin Dose Admin Labetalol HCl (Normodyne IV) 20 mg NOW STAT IV 11/12/16 19:46 11/12/16 19:48 DC 11/12/16 20:03 20 MG Medical Decision This is a 41 yo M with Hx of Aortic Stenosis, HTN on Lisinopril and Metoprolol presenting with elevated BP at home up to 160/110 and 184/133 on arrival in ED w /o TREJO , N/V, visual changes -EKG: no ischemic changes, NSR -CBC: unremarkable -BMP: unremarkable -Troponin 1: negative, 2 hr Repeat: negative -Given 20 mg Labetalol Based on EKG and unremarkable troponin, cardiac ischemia unlikely. By discharge , patient was comfortable and remained asymptomatic. Elevated possibly attributed to acute stress at work as bp had been under control up until very recently. Discussed with patient he would need follow up with his outpatient turn down attendant for ongoing adjustment of medications if needed. Patient understood and was discharged. Impression Primary Impression: HTN (hypertension) Additional Impression: Precordial chest pain Departure Information Dispostion Home / Self-Care Condition GOOD Referrals Arturo Klein M.D. (PCP) Patient Instructions Hypertension Control, My [facility] [place] Additional Instructions -Please monitor Blood pressure at home -F/u with Compensation Director, Dr. Franco at scheduled appt -If you experience worsening TREJO, nausea/vomiting , visual changes, uncontrolled BP, please return to ED or call Cardiology clinic Resident Tracking Resident Involvement: Resident Care Provided Care Provided: Adult ED Problem Qualifiers
--- NOTE | 2016-11-12 22:04 | DIAGNOSTIC IMAGING REPORT ---
CHEST ONE VIEW PORTABLE HISTORY: 41 years-old Male chest pain COMPARISON: 08/09/2016 TECHNIQUE: Portable upright AP view of the chest FINDINGS: Moderate cardiomegaly with evidence of prior median sternotomy noted. There is no overt pulmonary edema, pneumothorax, pleural effusion or focal airspace consolidation. Bones and upper abdomen appear to be within normal limits. Remote mid left clavicular fracture redemonstrated. IMPRESSION: No acute cardiopulmonary process. The above report was generated using voice recognition software. It may contain grammatical, syntax or spelling errors. Electronically signed by: Tj Stover M.D. 11/12/2016 10:02 PM Dictated Date/Time: 11/12/2016 10:01 PM
[2016-11-12 22:22] VITALS: BP 141/97; PULSE 57; O2SAT 97
[2017-01-22] MEDS ORDERED: ASPI81TA28 PO (12:22)
== END 2016-11-12 22:23 | disposition home or self-care (01) ==
LOC: C.EDB 18:51 → C.EDC 22:23
DX: I10 Essential (primary) hypertension (principal); R07.2 Precordial pain; I35.0 Nonrheumatic aortic (valve) stenosis; Z79.899 Other long term (current) drug therapy; Z98.890 Other specified postprocedural states; Z82.49 Family history of ischemic heart disease and other diseases of the circulatory system

== ENCOUNTER 2016-11-15 11:49 | Emergency (ER) | payer OTHER ==
[~2016-11-15] VITALS: Ht 165.1 cm; Wt 109.0 kg
[~2016-11-15 11:49] MED LIST changes: -HYDR25TA4 PO
[2016-11-15 11:52] VITALS: TEMP 36.7; Ht 165.1 cm; Wt 109.0 kg
--- NOTE | 2016-11-15 12:38 | EMERGENCY ROOM VISIT NOTE ---
History Report prepared by Christophe: Tristen Mosley Under the Supervision of: Dr. Cm Vargas M.D. First contact with patient: 11:58 Chief Complaint: HYPERTENSION Stated Complaint: ELEVATED BP-POSSIBLY RELATED TO ANXIETY History of Present Illness The patient is a 41 year old male who presents to the Emergency Room with complaints of constant hypertension starting earlier this morning. The patient states that he checked his blood pressure as recommended to the doctor, and his diastolic pressure was around 110, so they told him to come into the ED for evaluation. The patient additionally states that he has been anxious, and he thinks that this could lead to the high blood pressure. The patient denies any cough, congestion, fevers, chills, diarrhea, constipation, or shortness of breath. He states that he has some intermittent chest tightness that lasts for only a minute at a time. The patient additionally states that he has a history of aortic stenosis. He states that about a month ago his heart rate suddenly went to 180 for a few hours, and then went down on its own, and now he has a portable EKG. He states that he takes metoprolol and lisinopril. He additionally states that he has had a heart catheterization recently, though they did not find anything on that or on ultrasound. Also the patient states that he was on hydrochlorothiazide for his kidney failure. Source of History: patient Onset: this morning Position: other (global) Quality: other (hypertension) Timing: constant Associated Symptoms: No fevers, No chills, No cough, No SOB, No diarrhea Note: Associated symptoms: chest tightness Review of Systems See HPI for pertinent positives and negatives. A total of ten systems were reviewed and were otherwise negative. Past Medical & Surgical Medical Problems: (1) Aortic stenosis Surgical Problems: (1) Status post aortic valvotomy (2) Status post biopsy left femur (3) Status post biopsy left femur Family History Hypertension UNCLE Social History Smoking Status: Former Smoker Marital Status: Occupation Status: employed Current/Historical Medications Scheduled Aspirin (Aspirin Ec), 81 MG PO DAILY Lisinopril (Lisinopril), 10 MG PO QAM Metoprolol Tartrate (Lopressor), 25 MG PO BID Scheduled PRN Acetaminophen (Tylenol), 1,000 MG PO DIRECTED PRN for Pain Buspirone Hcl (Buspar), 7.5 MG PO BID PRN for Anxiety/Agitation Diphenhydramine Hcl (Benadryl Allergy), 25 MG PO DIRECTED PRN for Sleep Allergies Coded Allergies: No Known Allergies (Verified , 11/15/16) Physical Exam Vital Signs Date Time Temp Pulse Resp B/P (MAP) Pulse Ox O2 Delivery O2 Flow Rate FiO2 11/15/16 14:15 64 16 160/117 96 11/15/16 13:48 64 16 160/117 96 Room Air 11/15/16 13:15 165/99 11/15/16 12:18 181/118 11/15/16 12:16 175/116 191/126 11/15/16 11:52 36.7 64 22 189/116 99 Room Air Physical Exam GENERAL: Awake, alert, well-appearing, in no distress HENT: Dry mucous membranes. Normocephalic, atraumatic. Oropharynx unremarkable. EYES: Normal conjunctiva. Sclera non-icteric. NECK: Supple. No nuchal rigidity. FROM. No JVD. RESPIRATORY: Clear to auscultation. CARDIAC: 3/6 systolic murmur. Regular rate, normal rhythm. Extremities warm and well perfused. Pulses equal. ABDOMEN: Soft, non-distended. No tenderness to palpation. No rebound or guarding. No masses. RECTAL: Deferred. MUSCULOSKELETAL: Chest examination reveals no tenderness. The back is symmetrical on inspection without obvious abnormality. There is no CVA tenderness to palpation. No joint edema. LOWER EXTREMITIES: Calves are equal size bilaterally and non-tender. No edema. No discoloration. NEURO: Normal sensorium. No sensory or motor deficits noted. SKIN: No rash or jaundice noted. Medical Decision & Procedures Laboratory Results 11/15/16 12:44 Red Blood Count 5.19, Mean Corpuscular Volume 89.6, Mean Corpuscular Hemoglobin 31.2, Mean Corpuscular Hemoglobin Concent 34.8, Mean Platelet Volume 9.8, Neutrophils (%) (Auto) 64.7, Lymphocytes (%) (Auto) 27.6, Monocytes (%) (Auto) 5.4, Eosinophils (%) (Auto) 1.8, Basophils (%) (Auto) 0.3, Neutrophils # (Auto) 3.85, Lymphocytes # (Auto) 1.64, Monocytes # (Auto) 0.32, Eosinophils # (Auto) 0.11, Basophils # (Auto) 0.02 11/15/16 12:44 Test 11/15/16 12:44 White Blood Count 5.95 K/uL (4.8-10.8) Red Blood Count 5.19 M/uL (4.7-6.1) Hemoglobin 16.2 g/dL (14.0-18.0) Hematocrit 46.5 % (42-52) Mean Corpuscular Volume 89.6 fL (80-100) Mean Corpuscular Hemoglobin 31.2 pg (25-34) Mean Corpuscular Hemoglobin Concent 34.8 g/dl (32-36) Platelet Count 277 K/uL (130-400) Mean Platelet Volume 9.8 fL (7.4-10.4) Neutrophils (%) (Auto) 64.7 % Lymphocytes (%) (Auto) 27.6 % Monocytes (%) (Auto) 5.4 % Eosinophils (%) (Auto) 1.8 % Basophils (%) (Auto) 0.3 % Neutrophils # (Auto) 3.85 K/uL (1.4-6.5) Lymphocytes # (Auto) 1.64 K/uL (1.2-3.4) Monocytes # (Auto) 0.32 K/uL (0.11-0.59) Eosinophils # (Auto) 0.11 K/uL (0-0.5) Basophils # (Auto) 0.02 K/uL (0-0.2) RDW Standard Deviation 42.7 fL (36.4-46.3) RDW Coefficient of Variation 13.0 % (11.5-14.5) Immature Granulocyte % (Auto) 0.2 % Immature Granulocyte # (Auto) 0.01 K/uL (0.00-0.02) Anion Gap 8.0 mmol/L (3-11) Est Creatinine Clear Calc Drug Dose 90.4 ml/min Estimated GFR () 85.3 Estimated GFR (Non- 73.6 BUN/Creatinine Ratio 11.9 (10-20) Calcium Level 9.1 mg/dl (8.5-10.1) Phosphorus Level 2.8 mg/dl (2.5-4.9) Magnesium Level 2.0 mg/dl (1.8-2.4) Laboratory results reviewed by me ECG Indication: other (hypertension) Rate (beats per minute): 51 Rhythm: sinus bradycardia Findings: no acute ischemic change, other (LVH) ED Course 1158: The patient was evaluated in room C3. A complete history and physical exam was performed. 1340: I reevaluated the patient, and he was feeling better, and his blood pressure was 160/99. I discussed discharged instructions with him, and he understands, and he will follow up with his PCP this week. The patient will be discharged home. Medical Decision I reviewed the patient's past medical history, medications, and the nursing notes as described above. The patient's presentation and history were concerning for asymptomatic hypertension, less likely dissection, less likely aneurysm, possible RESHMA/ dehydration.. The patient is a 41-year-old gentleman with a past medical history aortic stenosis who presents to emergency department concerned for elevated blood pressures per HPI. The patient arrives well appearing in no acute distress. Afebrile with elevated blood pressures per above but otherwise stable. On exam the patient has equal pulses and equal blood pressures making dissection or aneurysm unlikely. EKG and lab results also on remarkable. During observation patients blood pressure improved to 160s/90s. Considering the patient is asymptomatic no emergent blood pressure control or intervention is indicated. Findings discussed with patient and plan for PCP follow-up. Patient was agreeable and was discharged per instructions. Medication Reconcilliation Current Medication List: was not reviewed Blood Pressure Screening Patient's blood pressure: Elevated blood pressure Blood pressure disposition: Referred to PCP Impression Primary Impression: HTN (hypertension) Scribe Attestation The scribe's documentation has been prepared under my direction and personally reviewed by me in its entirety. I confirm that the note above accurately reflects all work, treatment, procedures, and medical decision making performed by me. Departure Information Dispostion Home / Self-Care Referrals Arturo Klein M.D. (PCP) Forms HOME CARE DOCUMENTATION FORM, IMPORTANT VISIT INFORMATION, WORK / SCHOOL INSTRUCTIONS Patient Instructions ED Hypertension Conf Out Of Control, My [facility] [employer] Additional Instructions Please follow up with your primary care physician in the next 1-3 days for re- evaluation and possible medication adjustment. Your exam, ekg, lab results did not show signs of an emergent condition at this time. Return to the emergency department for worsening symptoms as described in the accompanying instructions.
[2016-11-15 13:08] LABS: BASO % 0.3 %; BASO ABS # 0.02 K/uL (0-0.2); COMPLETE YES; EOS % 1.8 %; HEMATOCRIT 46.5 % (42-52); IG% 0.2 %; LYMPH % 27.6 %; LYMPH ABS # 1.64 K/uL (1.2-3.4); MEAN CELL VOLUME 89.6 fL (80-100); MEAN CORPUSCULAR HEMOGLOBIN 31.2 pg (25-34); MEAN CORPUSCULAR HGB CONC 34.8 g/dl (32-36); MEAN PLATELET VOLUME 9.8 fL (7.4-10.4); MONO % 5.4 %; NEUT % 64.7 %; PLATELET COUNT 277 K/uL (130-400); RED BLOOD COUNT 5.19 M/uL (4.7-6.1); WHITE BLOOD COUNT 5.95 K/uL (4.8-10.8)
[2016-11-15 13:28] LABS: BUN/CREATININE RATIO 11.9 (10-20); CALCIUM 9.1 mg/dl (8.5-10.1); CREATININE 1.2 mg/dl (0.60-1.40); PHOSPHORUS 2.8 mg/dl (2.5-4.9); POTASSIUM 4.2 mmol/L (3.5-5.1)
[2016-11-15 14:15] VITALS: BP 160/117; PULSE 64; O2SAT 96
[2017-01-22] MEDS ORDERED: ASPI81TA28 PO (12:22)
== END 2016-11-15 14:17 | disposition home or self-care (01) ==
LOC: C.EDB 11:51 → C.EDC 14:17
DX: I10 Essential (primary) hypertension (principal); R00.1 Bradycardia, unspecified; I35.0 Nonrheumatic aortic (valve) stenosis; Z98.890 Other specified postprocedural states; Z87.891 Personal history of nicotine dependence; Z79.82 Long term (current) use of aspirin; Z79.899 Other long term (current) drug therapy; Z82.49 Family history of ischemic heart disease and other diseases of the circulatory system

== ENCOUNTER 2017-01-22 16:22 | Emergency (ER) | payer OTHER ==
[~2017-01-22] VITALS: Ht 165.1 cm; Wt 104.0 kg
[~2017-01-22 16:22] MED LIST changes: -AMOX500C3 PO; +ASPI81TA28 PO
[2017-01-22 16:27] VITALS: TEMP 36.8; Ht 165.1 cm; Wt 104.0 kg
[2017-01-22] MEDS ORDERED: HYDROCODONE/ACETAMOPHEN 5/325MG TAB PO STA (16:42)
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
[2017-01-22] MEDS ORDERED: AMLO5TAB2 PO (17:06)
[2017-01-22] MEDS ORDERED: LISI-725 PO (17:06)
[2017-01-22] MEDS ORDERED: BUSP-8 PO (17:06)
[2017-01-22] MEDS ORDERED: HYDR25TA4 PO (17:06)
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
[2017-01-22] MEDS ORDERED: ACET-1256 PO (18:33)
[2017-01-22] MEDS ORDERED: LPR25 PO (18:33)
--- NOTE | 2017-01-22 18:36 | DIAGNOSTIC IMAGING REPORT ---
RIGHT KNEE CT CT DOSE: 221.79 mGy.cm HISTORY: tibial plateau fracture, further eval TECHNIQUE: Multiaxial CT images of the right knee were performed and reformatted in the sagittal and coronal plane without the use of contrast. A dose lowering technique was utilized adhering to the principles of ALARA. COMPARISON: Right knee 01/22/2017. FINDINGS: Mildly displaced oblique fracture within the fibular head. This demonstrates up to 3 mm of lateral displacement and 4 mm of depression. There is again noted a slightly comminuted and depressed fracture within the lateral tibial plateau. This demonstrates up to 1 cm of lateral displacement and 5 mm of depression. A few of the nondisplaced fracture lines extend into the posterior aspect of the medial tibial plateau. There are suggestion of a small minimally impacted subchondral fracture at the lateral femoral condyle. This is best seen on coronal image 30 of 59. Moderate lipohemarthrosis. Subcutaneous hematoma within the proximal lower leg anteriorly. IMPRESSION: 1. Redemonstration of the depressed and displaced lateral tibial plateau fracture. A few of the fracture lines extend into the posterior aspect of the medial tibial plateau. 2. Mildly displaced fibular head fracture. 3. Small minimally impacted subchondral fracture at the lateral femoral condyle. 4. Moderate lipohemarthrosis. Electronically signed by: Donny Gómez M.D. 01/22/2017 6:35 PM Dictated Date/Time: 01/22/2017 6:26 PM
[2017-01-22] MEDS ORDERED: DIPH25CA65 PO (19:19)
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
[2017-01-22] MEDS ORDERED: MoRPHine SULFATE 4 MG/ML 1 ML CARP\\VIAL IV STA (21:00)
[2017-01-22 21:30] VITALS: BP 124/88; PULSE 80; O2SAT 97
== END 2017-01-22 21:37 | disposition short-term general hospital (02) ==
LOC: C.EDB 16:22 → C.EDD 21:37
DX: S82.141A Displaced bicondylar fracture of right tibia, initial encounter for closed fracture (principal); S82.831A Other fracture of upper and lower end of right fibula, initial encounter for closed fracture; V86.95XA Unspecified occupant of 3- or 4- wheeled all-terrain vehicle (ATV) injured in nontraffic accident, initial encounter; I35.0 Nonrheumatic aortic (valve) stenosis; Z79.82 Long term (current) use of aspirin

== ENCOUNTER 2017-05-20 16:50 | Emergency (ER) | payer OTHER ==
[~2017-05-20] VITALS: Ht 165.1 cm; Wt 111.0 kg
[~2017-05-20 16:50] MED LIST changes: +ACET-1256 PO; +AMLO5TAB2 PO; +BUSP-8 PO; -BUSP15TA70 PO; +DIPH25CA65 PO; +HYDR25TA4 PO; +LISI-725 PO; +LPR25 PO; -LSN5 PO
[2017-05-20 17:04] VITALS: Ht 165.1 cm; Wt 111.0 kg
--- NOTE | 2017-05-20 19:00 | EMERGENCY ROOM VISIT NOTE ---
History Report prepared by Christophe: Millicent Hernandez Under the Supervision of: Dr. Gurpreet Nunes M.D. First contact with patient: 18:34 Chief Complaint: CARDIAC ASSESSMENT Stated Complaint: PULSE OX ON, HEART FLUTTERED- CARDIAC HX Nursing Triage Summary: Heart fluttering, reports pulse was 39 today. Denies cardiac history. History of Present Illness The patient is a 41 year old male with a past medical history of hypertension, aortic stenosis, and aortic valvotomy who presents to the ED for a cardiac assessment. The patient reports that he takes 25 mg Metoprol twice daily and didn't take it tonight because his pulse was 39 according to his pulse oximeter. Positive lightheadedness and feeling his heartbeat in his throat. Negative loss of consciousness, leg swelling, chest pain, shortness of breath, and history of thyroid problems. He notes that he last saw Dr. Solo 1.5 months ago. Source of History: patient Onset: prior to arrival Position: other (global) Quality: other (heartbeat in throat) Timing: other (episode) Associated Symptoms: No LOC, No chest pain, No SOB Note: The patient complains of low heart rate and lightheadedness. The patient denies leg swelling and history of thyroid problems. Review of Systems See HPI for pertinent positives and negatives. A total of ten systems were reviewed and were otherwise negative. Past Medical & Surgical Medical Problems: (1) Aortic stenosis Surgical Problems: (1) Status post aortic valvotomy (2) Status post biopsy left femur (3) Status post biopsy left femur Family History Hypertension UNCLE Social History Smoking Status: Never Smoker Marital Status: Housing Status: lives with family Occupation Status: employed Current/Historical Medications Scheduled Aspirin (Aspirin Ec), 81 MG PO DAILY Hydrochlorothiazide (Hctz), 12.5 MG PO DAILY Lisinopril (Zestril), 20 MG PO DAILY Metoprolol Tartrate (Lopressor), 25 MG PO BID Scheduled PRN Buspirone Hcl (Buspirone Hcl), 5 MG PO QID PRN for Anxiety/Agitation Diphenhydramine Hcl (Benadryl Allergy), 25 MG PO UD PRN for Sleep Allergies Coded Allergies: No Known Allergies (Verified , 05/20/17) Physical Exam Vital Signs Date Time Temp Pulse Resp B/P (MAP) Pulse Ox O2 Delivery O2 Flow Rate FiO2 05/20/17 19:30 77 05/20/17 17:11 Room Air 05/20/17 17:04 81 17 177/111 99 Room Air Physical Exam GENERAL: Awake, alert, well-appearing, NAD HENT: Normocephalic, atraumatic. EYES: Normal conjunctiva. Sclera non-icteric. NECK: Supple. No nuchal rigidity. FROM. RESPIRATORY: CTAB, no rhonchi, wheezing, crackles CARDIAC: RRR, no RG, systolic ejection murmur. ABDOMEN: Soft, NTND, BS+, obese MSK: No chest wall TTP, no LE edema, chest has midline sternotomy scar. NEURO: GCS 15, CN 2-12 intact, moves all 4s on command SKIN: No rash or jaundice noted. Medical Decision & Procedures ER Provider Diagnostic Interpretation: Radiology results as stated below per my review and radiologist interpretation: CHEST ONE VIEW PORTABLE CLINICAL HISTORY: Chest pain. COMPARISON STUDY: Chest radiograph November 12, 2016. FINDINGS: There are median sternotomy wires. No pneumothorax or pleural effusion is noted. There is no evidence for pulmonary edema. No consolidation is identified. Moderate cardiomegaly is unchanged. There is no evidence for pulmonary edema. There is no consolidation to suggest pneumonia. IMPRESSION: 1. No acute cardiopulmonary findings. 2. No change in moderate cardiomegaly. Electronically signed by: Mio Mustafa M.D. 05/20/2017 7:36 PM Dictated Date/Time: 05/20/2017 7:35 PM Laboratory Results 05/20/17 19:20 Red Blood Count 5.11, Mean Corpuscular Volume 86.9, Mean Corpuscular Hemoglobin 29.9, Mean Corpuscular Hemoglobin Concent 34.5, Mean Platelet Volume 9.4, Neutrophils (%) (Auto) 59.5, Lymphocytes (%) (Auto) 32.7, Monocytes (%) (Auto) 6.0, Eosinophils (%) (Auto) 1.3, Basophils (%) (Auto) 0.2, Neutrophils # (Auto) 5.59, Lymphocytes # (Auto) 3.07, Monocytes # (Auto) 0.56, Eosinophils # (Auto) 0.12, Basophils # (Auto) 0.02 05/20/17 19:20 Test 05/20/17 19:20 White Blood Count 9.39 K/uL (4.8-10.8) Red Blood Count 5.11 M/uL (4.7-6.1) Hemoglobin 15.3 g/dL (14.0-18.0) Hematocrit 44.4 % (42-52) Mean Corpuscular Volume 86.9 fL (80-100) Mean Corpuscular Hemoglobin 29.9 pg (25-34) Mean Corpuscular Hemoglobin Concent 34.5 g/dl (32-36) Platelet Count 308 K/uL (130-400) Mean Platelet Volume 9.4 fL (7.4-10.4) Neutrophils (%) (Auto) 59.5 % Lymphocytes (%) (Auto) 32.7 % Monocytes (%) (Auto) 6.0 % Eosinophils (%) (Auto) 1.3 % Basophils (%) (Auto) 0.2 % Neutrophils # (Auto) 5.59 K/uL (1.4-6.5) Lymphocytes # (Auto) 3.07 K/uL (1.2-3.4) Monocytes # (Auto) 0.56 K/uL (0.11-0.59) Eosinophils # (Auto) 0.12 K/uL (0-0.5) Basophils # (Auto) 0.02 K/uL (0-0.2) RDW Standard Deviation 41.9 fL (36.4-46.3) RDW Coefficient of Variation 13.2 % (11.5-14.5) Immature Granulocyte % (Auto) 0.3 % Immature Granulocyte # (Auto) 0.03 K/uL (0.00-0.02) Prothrombin Time 10.7 SECONDS (9.0-12.0) Prothromb Time International Ratio 1.0 (0.9-1.1) Activated Partial Thromboplast Time 24.9 SECONDS (21.0-31.0) Partial Thromboplastin Ratio 1.0 Anion Gap 7.0 mmol/L (3-11) Est Creatinine Clear Calc Drug Dose 95.2 ml/min Estimated GFR () 89.8 Estimated GFR (Non- 77.5 BUN/Creatinine Ratio 11.7 (10-20) Calcium Level 9.3 mg/dl (8.5-10.1) Magnesium Level 2.1 mg/dl (1.8-2.4) Troponin I < 0.015 ng/ml (0-0.045) Pro-B-Type Natriuretic Peptide 90 pg/ml (0-450) Laboratory results reviewed by me ECG Indication: palpitations Rate (beats per minute): 74 Rhythm: normal sinus Findings: other (normal axis, normal intervals, no STS changes or TWI) Change: Patient's electrocardiogram interpreted by me. ED Course 1835: The patient was evaluated in room A4B. A complete history and physical exam was performed. 2013: I spoke to Dr. Aguilar -Cardiology. He states that the patient can follow up in the office and set up a time to get a Halter Monitor. 2027: I reevaluated the patient. Discussed results and discharge instructions: He verbalized understanding and agreement. The patient is ready for discharge. Medical Decision The patient is a 41 year old male with a past medical history of hypertension, aortic stenosis, and aortic valvotomy who presents to the ED for a cardiac assessment. Differential diagnosis: Etiologies such as cardiac ischemia, aortic dissection, pulmonary embolism, pneumonia, pneumothorax, musculoskeletal, infections, pericarditis, myocarditis , esophageal rupture, gastrointestinal, medication side effect, increased vasovagal tone, as well as others were entertained. Patient was seen and evaluated the bedside. Patient did state that he noticed that he felt as though his heart was in his throat and then he checked his pulse oximeter which he states he uses to differentiate shortness of breath from anxiety. Patient noticed that his heart rate was in the high 30s. Patient states that he typically does take his Toprol. Patient did take it this morning. Patient denies any increases in dosing. Patient does not take any additional doses of Toprol that he is not supposed to. Patient had no episodes here in the department. Patient has a normal EKG and normal blood work. I did speak with the on-call medical imaging technologist who recommended to follow up in clinic with Dr. Solo and to discuss a Holter monitor and/or medication changes. Patient was told his instructions as well as all findings. Patient was agreeable to plan of care. Patient was given strict follow-up, discharge, and return precautions. All questions were answered. Patient was deemed suitable for outpatient follow-up at this time. Patient agreed with the plan of care and was safely discharged home. The chart was completed utilizing [employer] voice recognition software. Grammatical errors, random word insertions, pronoun errors, and incomplete sentences are an occasional consequence of this system due to software limitations, ambient noise, and hardware issues. Any formal questions or concerns about the content, text, or information contained within the body of this dictation should be directly addressed to the physician for clarification. Medication Reconcilliation Current Medication List: was personally reviewed by me Blood Pressure Screening Patient's blood pressure: Elevated blood pressure Blood pressure disposition: Referred to PCP Consults Time Called: 2009 Consulting Physician: Dr. Lauren DupreeCardiology Returned Call: [address] Lauren Bill. He states that the patient can follow up in the office and set up a time to get a Halter Monitor. Impression Primary Impression: Bradycardia Scribe Attestation The scribe's documentation has been prepared under my direction and personally reviewed by me in its entirety. I confirm that the note above accurately reflects all work, treatment, procedures, and medical decision making performed by me. Departure Information Dispostion Home / Self-Care Referrals Arturo Klein M.D. (PCP) Forms IMPORTANT VISIT INFORMATION Patient Instructions Bradycardia, My [facility] Additional Instructions Please return to the emergency department if you have worsening or recurrent symptoms not amenable to at-home treatment. Please call for a follow-up appointment with her primary care physician. Please take your medications as prescribed. If you have other concerns and/or complaints please feel free to also call your primary care physician's office or return the ED for further evaluation, management, and treatment. Take your medications as prescribed. Please follow-up with your primary medical imaging technologist. At this time we suggested he could discuss medication changes and /or a Holter monitor. You have been examined and treated today on an emergency basis only. This is not a substitute for, or an effort to provide, complete comprehensive medical care. It is impossible to recognize and treat all injuries or illnesses in a single emergency department visit. It is therefore important that you follow up closely with [facility], your PCP, and/or your specialist(s). Call as soon as possible for an appointment. Thank you for your time and consideration. I look forward to speaking with you again soon. Please don't hesitate to call us if you have any questions.
[2017-05-20 19:31] LABS: BASO % 0.2 %; BASO ABS # 0.02 K/uL (0-0.2); EOS % 1.3 %; EOS ABS # 0.12 K/uL (0-0.5); HEMATOCRIT 44.4 % (42-52); HEMOGLOBIN 15.3 g/dL (14.0-18.0); IG# 0.03 K/uL (0.00-0.02); LYMPH % 32.7 %; LYMPH ABS # 3.07 K/uL (1.2-3.4); MEAN CELL VOLUME 86.9 fL (80-100); MEAN CORPUSCULAR HEMOGLOBIN 29.9 pg (25-34); MEAN CORPUSCULAR HGB CONC 34.5 g/dl (32-36); MEAN PLATELET VOLUME 9.4 fL (7.4-10.4); MONO ABS # 0.56 K/uL (0.11-0.59); NEUT % 59.5 %; NEUT ABS # 5.59 K/uL (1.4-6.5); PLATELET COUNT 308 K/uL (130-400); RED CELL DISTRIBUTION WIDTH CV 13.2 % (11.5-14.5); RED CELL DISTRIBUTION WIDTH SD 41.9 fL (36.4-46.3); WHITE BLOOD COUNT 9.39 K/uL (4.8-10.8)
--- NOTE | 2017-05-20 19:37 | DIAGNOSTIC IMAGING REPORT ---
CHEST ONE VIEW PORTABLE CLINICAL HISTORY: Chest pain. COMPARISON STUDY: Chest radiograph November 12, 2016. FINDINGS: There are median sternotomy wires. No pneumothorax or pleural effusion is noted. There is no evidence for pulmonary edema. No consolidation is identified. Moderate cardiomegaly is unchanged. There is no evidence for pulmonary edema. There is no consolidation to suggest pneumonia. IMPRESSION: 1. No acute cardiopulmonary findings. 2. No change in moderate cardiomegaly. Electronically signed by: Mio Mustafa M.D. 05/20/2017 7:36 PM Dictated Date/Time: 05/20/2017 7:35 PM
[2017-05-20 19:43] LABS: PTT PATIENT 24.9 SECONDS (21.0-31.0)
[2017-05-20 19:54] LABS: BLOOD UREA NITROGEN 13 mg/dl (7-18); CALCIUM 9.3 mg/dl (8.5-10.1); CARBON DIOXIDE 28 mmol/L (21-32); CREATININE 1.15 mg/dl (0.60-1.40); GLUCOSE 89 mg/dl (70-99); POTASSIUM 3.5 mmol/L (3.5-5.1); SODIUM 137 mmol/L (136-145)
[2017-05-20 20:46] VITALS: BP 152/102; PULSE 82; O2SAT 98
== END 2017-05-20 20:47 | disposition home or self-care (01) ==
LOC: C.EDB 16:52 → C.EDA 20:47
DX: R00.1 Bradycardia, unspecified (principal); R00.2 Palpitations; I35.0 Nonrheumatic aortic (valve) stenosis; Z95.2 Presence of prosthetic heart valve; Z79.82 Long term (current) use of aspirin